=== PATIENT | female | born 1985 | race Caucasian/White ===

== ENCOUNTER 2019-05-27 13:10 | Emergency (ER) | payer BC, SELFPAY ==
[2019-05-27 13:32] VITALS: BP 130/83; PULSE 80; RESP 16; TEMP 36.7; O2SAT 99; BMI 24.0
--- NOTE | 2019-05-27 13:40 | ED_ITS ---
Entered by Simeon Cartagena LPN, acting as scribe for Juan Alberto Robles MD HPI - Abdominal Pain General: Chief Complaint: Abdominal Pain Stated Complaint: vaginal bleeding Time Seen by Provider: 05/27/19 13:40 History of Present Illness: Associated Symptoms: Denies change in bowel habits, chills, constipation, dysuria, fever(s), nausea and vomiting Related Data: Date of Last Menstrual Period: 03/13/19 Review of Systems Const: Denies: fever, chills, night sweats or diaphoresis Eyes: Denies: change in vision or blurry vision ENMT: Denies: throat pain Card: Denies: chest pain Resp: Denies: shortness of breath or productive cough GI: Reports: abdominal pain; Denies: nausea, vomiting, constipation or change in bowel habits : Reports: vaginal bleeding; Denies: painful urination Musc: Denies: extremity pain or joint pain Skin/Breast: Denies: rash Neuro: Denies: headache, difficulty walking or confusion Psych: Denies: suicidal ideation or homicidal ideation PENDING SALE TO [facility] ED Female Reproductive History: Date of last menstrual period: 03/13/19 Physical Exam Const: COMMON NORMALS: no apparent distress, oriented x3, no limitations and alert EXAM LIMITATIONS: no altered mental status GENERAL APPEARANCE: cooperative, comfortable and well developed; not in distress, not anxious and not lethargic ORIENTATION/CONSCIOUSNESS: Yes awake, Yes oriented to person, Yes oriented to place and Yes oriented to time; not lethargic HENMT: COMMON NORMALS: normocephalic, head/scalp atraumatic and external nose normal HEAD & SCALP: normocephalic and atraumatic FACE & SINUS: normal facial exam NOSE: external nose normal Eye: COMMON NORMALS: PERRL, EOMs intact bilaterally, conjunctivae normal and no scleral icterus CONJUNCTIVA: Yes conjunctivae normal PUPIL: Yes PERRL Neck/C-Spine: COMMON NORMALS: full ROM GENERAL: Yes normal visual inspection Chest: COMMONS NORMALS: inspection of chest normal and palpation of chest normal Resp: COMMON NORMALS: normal respiratory effort, no retractions, no use of accessory muscles and clear to auscultation bilaterally EFFORT & INSPECTION: Yes able to speak in complete sentences AUSCULTATION: clear to auscultation bilaterally Cardio: COMMON NORMALS: regular rate, regular rhythm, no murmurs and peripheral pulses 2+ throughout RATE: regular rate RHYTHM: regular rhythm PERIPHERAL PULSES: pulses 2+ throughout, radial pulses present and posterior tibial pulses present GI: COMMON NORMALS: normal to inspection, nondistended, normoactive bowel sounds, soft to palpation, non-tender, no hepatosplenomegaly, no masses and no bruits PALPATION: Yes soft and Yes no hepatosplenomegaly Extremity: COMMON NORMALS: normal to inspection, full ROM, normal capillary refill, no joint enlargement and no clubbing, cyanosis or edema Neuro: COMMON NORMALS: oriented x3 SENSORIUM/ORIENTATION: Yes alert, Yes oriented to person, Yes oriented to place, Yes oriented to time and No lethargic Psych: COMMON NORMALS: mental status grossly normal, thought process normal, cooperative, affect normal, speech normal and activity/motor behavior normal SPEECH: Yes normal speech THOUGHT PROCESS: normal thought process Skin: COMMON NORMALS: no rashes or lesions noted and skin turgor normal GENERAL SKIN EXAM: no rashes or lesions noted, elasticity normal and turgor normal Procedures Intubation Mg Given: 20 Mg Given: 200 Course Vital Signs: Vital signs: Vital Signs Temperature 98.1 F 05/27/19 13:32 Pulse Rate 80 05/27/19 13:32 Respiratory Rate 16 05/27/19 13:32 Blood Pressure 130/83 05/27/19 13:32 Pulse Oximetry 99 05/27/19 13:32 Coding Level of Care Code ED Crawler Dragline Operator for Ramirez Huizar
--- NOTE | 2019-05-27 13:55 | USR_ITS ---
PROCEDURE INFORMATION: Exam: US Pelvis Complete, Transabdominal Exam date and time: 05/27/2019 2:21 PM Age: 33 years old Clinical indication: Menstruation abnormalities; Irregular menstruation; Prior surgery; Surgery date: 1-6 months; Surgery type: Bilateral oophorectomy; Patient HX: H/o endometriosis; Additional info: R lower pelvic pain TECHNIQUE: Imaging protocol: Real-time transabdominal pelvic ultrasound with image documentation. Complete exam. COMPARISON: US pelvic with transvaginal 12/06/2018 2:10 PM FINDINGS: Uterus/cervix: There is a 5 mm incidental nabothian cyst. Endometrial stripe measures 5 mm and is mildly heterogeneous. Uterus measures 8.7 x 3.5 x 6.6 cm. Right adnexa: Right ovary has been removed surgically. Left adnexa: Left ovary has been surgically removed. Free fluid: None. Bladder: Normal. US/US pelvic with transvaginal IMPRESSION: Endometrial stripe is normal thickness however is mildly heterogeneous. This is a nonspecific finding.
--- NOTE | 2019-05-27 14:04 | W.ED.ABDPA2 ---
HPI - Abdominal Pain General: Chief Complaint: Abdominal Pain Stated Complaint: vaginal bleeding Time Seen by Provider: 05/27/19 13:40 Source: patient Mode of arrival: ambulatory Limitations: no limitations History of Present Illness: HPI narrative: Patient is a 33-year-old female who presents to ED today with complaints of right lower pelvic pain that began today; she notes vaginal bleeding x2 days; patient reports a bilateral oophorectomy and salpingectomy by Dr. Ryan marshall in February for endometriosis; she reports that the pain in her right pelvis feels similar to when she was having pain associated with the endometriosis; she denies vaginal discharge or odor; she is monogamous with her ; denies dysuria, frequency, urgency; denies nausea, vomiting, changes in bowel movements MD elicited complaint: abdominal pain Onset (ago): hour(s) Pain Consistency: constant Location: RLQ Quality: cramping Radiation: none Associated Symptoms: Reports GI cramping; Denies bloating, change in bowel habits, chills, constipation, diarrhea, dysuria, excessive flatus, fever(s), nausea and vomiting Related Data: Date of Last Menstrual Period: 03/13/19 Review of Systems Const: Denies: fever or chills GI: Reports: abdominal pain and cramping; Denies: nausea, vomiting, diarrhea, constipation, bloating, excessive passing of gas or change in bowel habits : Reports: vaginal bleeding; Denies: flank pain, difficulty urinating, painful urination, urinary frequency, urinary urgency, urinary hesitancy, genital lesion, genital itching, vaginal odor or vaginal discharge [facility] ED Female Reproductive History: Date of last menstrual period: 03/13/19 Physical Exam Const: COMMON NORMALS: no apparent distress, average body habitus, oriented x3, alert and well nourished GENERAL APPEARANCE: cooperative Resp: COMMON NORMALS: normal respiratory effort and clear to auscultation bilaterally AUSCULTATION: clear to auscultation bilaterally Cardio: COMMON NORMALS: regular rate and regular rhythm RATE: regular rate RHYTHM: regular rhythm GI: COMMON NORMALS: soft to palpation, no hepatosplenomegaly and no masses AUSCULTATION: Yes normoactive bowel sounds PALPATION: Yes soft, Yes tender (R pelvic region; neg rebound, psoas, heel tap; no tenderness to mcburneys) and Yes no hepatosplenomegaly : COMMON NORMALS: Yes no CVA tenderness BLADDER/KIDNEY EXAM: Yes no CVA tenderness Back/Pelvis: COMMON NORMALS: no CVA tenderness Neuro: COMMON NORMALS: oriented x3 SENSORIUM/ORIENTATION: Yes alert Skin: COMMON NORMALS: no rashes or lesions noted GENERAL SKIN EXAM: no rashes or lesions noted Course Vital Signs: Vital signs: Vital Signs Temperature 98.1 F 05/27/19 13:32 Pulse Rate 78 05/27/19 15:05 Respiratory Rate 16 05/27/19 15:05 Blood Pressure 144/103 05/27/19 15:05 Pulse Oximetry 98 05/27/19 15:05 MDM - Abdominal Pain Lab Data: Labs: Lab Results 05/27/19 05/27/19 05/27/19 Range/Units 14:00 14:13 14:13 WBC 10.5 H (4.0-10.0) 10^3/ uL RBC 4.63 (4.1-5.3) 10^6/u L Hgb 14.6 (11.5-15.3) g/dL Hct 42.4 (37.0-47.0) % MCV 91.6 (81-99) fL MCH 31.5 (28.0-34.0) pg MCHC 34.4 (30.0-36.0) g/dL RDW 12.6 (12.1-15.1) % Plt Count 322 (130-400) 10^3/c mm MPV 9.1 (7.4-10.4) fL Neut % (Auto) 62.4 % Lymph % (Auto) 28.7 % Brantley % (Auto) 5.1 % Eos % (Auto) 3.0 % Baso % (Auto) 0.6 % Neut # (Auto) 6.6 (1.8-7.7) 10^3/u L Lymph # (Auto) 3.0 (0.8-4.8) 10^3/u L Brantley # (Auto) 0.5 (0.2-0.9) 10^3/u L Eos # (Auto) 0.3 (0.0-0.8) 10^3/u L Baso # (Auto) 0.1 (0.0-0.1) 10^3/u L Nucleated RBC % (a uto) 0 % Nucleated RBCs # 0.0 /100WBC Sodium 148 H (136-145) mmol/L Potassium 3.9 (3.5-5.1) mmol/L Chloride 106 (98-107) mmol/L Carbon Dioxide 26 (22-29) mmol/L Anion Gap 19.9 H (5-19) BUN 17 (6-20) mg/dL Creatinine 0.5 (0.5-0.9) mg/dL GFR Calculation 140.4 H (90-130) mL/min Glucose 93 (74-109) mg/dL Calcium 10.2 H (8.6-10.0) mg/Dl Total Bilirubin 0.2 (0.15-1.2) mg/dL AST 15 (0-32) U/L ALT 11 (0-33) U/L Alkaline Phosphata se 53 (35-105) IU/L Total Protein 7.6 (6.6-8.7) g/dL Albumin 4.7 (3.5-5.2) g/dL Globulin 2.9 (1.3-4.6) g/dL Urine Color Yellow (Yellow) Urine Appearance Sl hazy (CLEAR) Urine pH 5 (5-7) Ur Specific Gravit y 1.015 (1.005-1.030) Urine Protein Neg (Negative) Urine Glucose (UA) Norm (Normal) Urine Ketones Negative (Negative) Urine Occult Blood 3+ H (Negative) Urine Nitrate Negative (Negative) Urine Bilirubin Neg (NEGATIVE) Urine Urobilinogen Norm (Negative) mg/dL Ur Leukocyte Lili ase Negative (Negative) Urine RBC 10-15 H (0-2) /hpf Urine WBC None (0-5) /hpf Ur Squamous Epith Cells 0-4 H (0-5) Urine Bacteria None (NONE) Imaging Data ^: US pelvis: Radiologist's impression: [address] [address] Ultrasound Report Signed Patient: Sophia Bhardwaj Unit #: [id number] : 1985 Age/Sex: 33 / F ADM Date: 05/27/19 Loc: ER Room/Bed: Attending Dr: Ordering Provider/Ordering MD: Cherelle Gamble Date of Service: 05/27/19 Procedure(s): US pelvic with transvaginal Accession Number(s): [id number] Report Number: [id number] PROCEDURE INFORMATION: Exam: US Pelvis Complete, Transabdominal Exam date and time: 05/27/2019 2:21 PM Age: 33 years old Clinical indication: Menstruation abnormalities; Irregular menstruation; Prior surgery; Surgery date: 1-6 months; Surgery type: Bilateral oophorectomy; Patient HX: H/o endometriosis; Additional info: R lower pelvic pain TECHNIQUE: Imaging protocol: Real-time transabdominal pelvic ultrasound with image documentation. Complete exam. COMPARISON: US pelvic with transvaginal 12/06/2018 2:10 PM FINDINGS: Uterus/cervix: There is a 5 mm incidental nabothian cyst. Endometrial stripe measures 5 mm and is mildly heterogeneous. Uterus measures 8.7 x 3.5 x 6.6 cm. Right adnexa: Right ovary has been removed surgically. Left adnexa: Left ovary has been surgically removed. Free fluid: None. Bladder: Normal. US/US pelvic with transvaginal IMPRESSION: Endometrial stripe is normal thickness however is mildly heterogeneous. This is a nonspecific finding. Dictated By: Marta Loredo MD Signed By: Marta Loredo MD Signed Date/Time: 05/27/191527 DD/ 26 Discharge Plan Discharge Patient Disposition: Home, Self-Care Clinical Impression: Pelvic pain in female Condition: Stable Prescriptions: No Action medroxyprogesterone 5 mg tablet 5 mg PO DAILY RF: 0 estradiol 1 mg tablet 1 mg PO DAILY RF: 0 estradiol 0.5 mg tablet 0.5 mg PO DAILY RF: 0 Thrive Patch 1 patch topical DAILY RF: 0 Thrive Pills 2 tab PO DAILY RF: 0 Discharge Orders: Discharge Order (Routine); Ordered 05/27/19 Ordered By: Cherelle Gamble Referrals: Nae Coyne DO [Family Provider] - Discharge Diet: Usual diet Discharge Activity: Resume usual activity Activity Restrictions/Additional Instructions: Contact Dr. Davis's office to schedule follow up visit. Return to ED for worsening pain, severe bleeding, fevers/chills, or any other concerning symptoms. Coding Level of Care Code ED Embalmer Apprentice for Chg Fwd Exam Problem Focused
[2019-05-27 14:18] LABS: Basophils # 0.1 10^3/uL (0.0-0.1); Basophils % 0.6 %; Eosinophils # 0.3 10^3/uL (0.0-0.8); Hematocrit 42.4 % (37.0-47.0); Hemoglobin 14.6 g/dL (11.5-15.3); Lymphocytes % 28.7 %; Mean Corpuscular HGB Conc 34.4 g/dL (30.0-36.0); Mean Corpuscular Hemoglobin 31.5 pg (28.0-34.0); Mean Corpuscular Volume 91.6 fL (81-99); Mean Platelet Volume 9.1 fL (7.4-10.4); Monocytes # 0.5 10^3/uL (0.2-0.9); Monocytes % 5.1 %; Neutrophils # 6.6 10^3/uL (1.8-7.7); Neutrophils % 62.4 %; Nucleated Red Blood Cells % 0 %; Platelet Count 322 10^3/cmm (130-400); Red Blood Count 4.63 10^6/uL (4.1-5.3); Red Cell Distribution Width 12.6 % (12.1-15.1); White Blood Count 10.5 10^3/uL (4.0-10.0)
[2019-05-27 14:24] LABS: Glucose Urine UA Norm (Normal); Ketones Urine Negative (Negative); Protein Urine Neg (Negative); Specific Gravity, Urine 1.015 (1.005-1.030); Urine Appearance SL Hazy (CLEAR); Urine Color Yellow (Yellow); pH Urine 5 (5-7)
[2019-05-27 14:25] LABS: Add Urine Microscopic? YES; Bilirubin Urine Neg (NEGATIVE); Blood Urine 3+ (Negative); Leukocyte Esterase Urine Negative (Negative); Nitrate Urine Negative (Negative); Urobilinogen Urine Norm (Negative)
[2019-05-27 14:29] LABS: Add Urine Culture? Yes; Squamous Epithelial Cell Urine 0-4 (0-5)
[2019-05-27 14:36] LABS: Alanine Aminotransferase 11 U/L (0-33); Albumin Level 4.7 g/dL (3.5-5.2); Alkaline Phosphatase 53 IU/L (35-105); Anion Gap 19.9 (5-19); Aspartate Amino Transferase 15 U/L (0-32); Blood Urea Nitrogen 17 mg/dL (6-20); Calcium 10.2 mg/Dl (8.6-10.0); Carbon Dioxide 26 mmol/L (22-29); Chloride 106 mmol/L (98-107); Globulin 2.9 g/dL (1.3-4.6); Glomerular Filtration Rate 140.4 mL/min (90-130); Glucose 93 mg/dL (74-109); Potassium 3.9 mmol/L (3.5-5.1); Sodium 148 mmol/L (136-145); Total Bilirubin 0.2 mg/dL (0.15-1.2); Total Protein 7.6 g/dL (6.6-8.7)
[2019-05-27] MEDS: morphine 4 mg/mL SDV 1 mL IM (15:02)
[2019-05-27] MEDS: ondansetron 2 mg/ML SDV 2 mL 4 MG IM (15:02)
[2019-05-27 15:05] VITALS: BP 144/103; PULSE 78; RESP 16; O2SAT 98
[2019-05-27 16:10] VITALS: BP 126/84; PULSE 70; RESP 18; O2SAT 97
--- NOTE | 2019-05-29 13:30 | DCPLANNER ---
global regulatory affairs manager had message to schedule a follow up appointment for patient with [facility]. global regulatory affairs manager called the clinic, spoke with Subha, gave clinic patients information. global regulatory affairs manager was told that patients information would be printed and reviewed. Clinic will call leather case finisher with appointment information.
--- NOTE | 2019-05-30 12:43 | DCPLANNER ---
A follow up appointment is scheduled for Tuesday, June 04, [address] at 2:[address] Davis. Clinic will call patient with appointment information.
--- NOTE | 2019-06-06 15:11 | DCPLANNER ---
Patient did attend appointment scheduled for 06.04.19 with [facility].
== END 2019-05-27 16:11 | disposition home or self-care (01) ==
PROVIDERS: Emergency Provider Physician Assistant; Family Provider Family Medicine
DX: R10.2 Pelvic and perineal pain (principal)
CPT/HCPCS: 36415; 76830; 76856; 80053; 81003; 85025; 96372; 99282; J2270; J2405

== ENCOUNTER → 2019-07-23 14:36 | Outpatient (BNVA) | payer BC, SELFPAY | PROVIDERS: Family Provider Family Medicine; PCP Family Medicine; Visit Provider Family Medicine | DX: R68.89 Other general symptoms and signs (principal) | CPT/HCPCS: 87804 ==

== ENCOUNTER → 2020-06-09 15:50 | Outpatient (BNVA) | payer BC, SELFPAY | PROVIDERS: Family Provider Family Medicine; PCP Family Medicine; Visit Provider Obstetrics & Gynecology | DX: N89.8 Other specified noninflammatory disorders of vagina (principal) | CPT/HCPCS: 87210 ==

== ENCOUNTER 2020-06-27 12:28 | Emergency (ER) | payer BC, SELFPAY ==
[2020-06-27 12:40] VITALS: BP 151/100; PULSE 77; RESP 18; TEMP 36.6; O2SAT 100; BMI 24.9
--- NOTE | 2020-06-27 13:06 | CT_ITS ---
WS: [id number] CT HEAD TECHNIQUE: Noncontrast CT of the head obtained from the skullbase to the vertex. CLINICAL INFORMATION: left sided migraine. bilateral hand cramp/weakness/tingling COMPARISON: None. DLP: 741.[address] scans at [facility] use at least one of these dose optimization techniques: automat ed exposure control; mA and/or kV adjustment per patient size (includes targeted exams where dose is matched to clinical indication); or iterative reconstruction. FINDINGS: No evidence of intracranial hemorrhage or mass effect. Ventricular system and basal cisterns are do nt. No extra-axial fluid collections. No evidence of mass or mass effect. Normal paiz-white differen tiation. Paranasal sinuses and mastoid air cells are well aerated. .Normal visualized soft tissues. CT/CT head wo con* [id number] IMPRESSION: 1. No evidence of intracranial hemorrhage or mass effect. 2. Normal paiz-white differentiation. 3. No acute intracranial findings.
--- NOTE | 2020-06-27 13:06 | XR_ITS ---
WS: [id number] Portable AP upright chest, 06/27/2020 Clinical Data: reduced breath sounds Comparison: Portable chest, 08/16/2018. Findings: No nodules, masses or effusions are seen. The heart is normal. The pulmonary vascularity is not increased. No pneumonia or pneumothorax is seen. XR/XR chest 1V portable [id number] Impression: Negative chest.
--- NOTE | 2020-06-27 13:09 | ECG_ITS ---
[facility] Test Date: 2020-06-27 Pat Name: Sophia Thomas Department: Room: Gender: Female Sweeper Operator Highways: : 1985 Requested By: Javi Huffman Order Number: [id number] Markos MD: Ashley Bradley M.D. Measurements Intervals [place] Rate: 68 P: 45 MI: 153 QRS: 96 QRSD: 109 T: 78 QT: 403 QTc: 431 Interpretive Statements SINUS RHYTHM BORDERLINE RIGHT AXIS DEVIATION [QRS AXIS > 90] No previous ECG available for comparison Electronically Signed On 06-28-2020 19:17:39 VIDEO LIBRARY ASSISTANT by Ashley Bradley M.D. [id number] f
--- NOTE | 2020-06-27 13:09 | CT_ITS ---
WS: [id number] CT CERVICAL TRAUMA TECHNIQUE: Noncontrast CT of the cervical spine with coronal and sagittal reformatted images. CLINICAL INFORMATION: tingling/weakness bilateral hands. left side migraine COMPARISON: None. DLP: 427.[address] scans at [facility] use at least one of these dose optimization techniques: automat ed exposure control; mA and/or kV adjustment per patient size (includes targeted exams where dose is matched to clinical indication); or iterative reconstruction. FINDINGS: Straightening of the normal cervical lordosis. Normal craniocervical junction. Normal C1-C2 articulat ion. Dens is normal in appearance. Normal occipital condyles. No high-grade spinal canal narrowing. I ncidental congenital incomplete C1 ring. No evidence of acute fracture or dislocation. Normal prevertebral soft tissues. Mastoids air cells are well aerated. CT/CT cervical spin wo con* [id number] IMPRESSION: No evidence of acute fracture or dislocation.
--- NOTE | 2020-06-27 13:11 | W.ED.HA ---
HPI - Headache General: Chief Complaint: Headache Stated Complaint: NEURO SYMPTOMS Time Seen by Provider: 06/27/20 13:00 History of Present Illness: HPI Narrative: The patient is a 35-year-old female with history of migraines. She reported she left the clients house earlier and started to have a severe left-sided migraine but this 1 is different because she started to have numbness in her hands and face, dizziness, and she has been unable to open her hands they are in a slightly flexed position. She cannot open them but they are very weak in that direction. When she relaxes her hands slightly flexed. She started a new estrogen medication approximately 1 month ago. MD elicited complaint: migraine Onset description: suddenly Location: left Severity: severe Quality & Timing: throbbing Exacerbating factors: none Associated symptoms: Reports nausea and paresthesias; Deny chest pain, confusion, cough, neck stiffness or rash Review of Systems General: Reports: 10 or more systems reviewed and unremarkable except in HPI and below Const: Denies: fatigue Eyes: Denies: change in vision, blurry vision or eye redness ENMT: Denies: throat pain, swelling of lips/tongue, ear or mastoid pain or nasal congestion Card: Denies: chest pain, palpitations, irregular heart rhythm, edema, dyspnea on exertion or orthopnea Resp: Denies: dyspnea, productive cough or non-productive cough GI: Reports: nausea : Denies: flank pain, difficulty voiding, urinary frequency or urinary urgency Musc: Denies: neck pain, back pain, extremity pain, joint pain, joint redness, limited range of motion or muscle weakness Skin/Breast: Denies: rash, pruritus, erythema, skin pain or skin tenderness Neuro: Denies: confusion Psych: Denies: anxiety or depression Endo: Denies: polyuria All/Imm: Denies: urticaria, throat swelling or tongue swelling PFSH ED PFSH: Medical History (Updated 06/27/20 @ 16:00 by Javi Huffman MD) Ovarian endometriosis 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 Found to have bilateral endometriomas at time of laparoscopy on 03/13/2019 resulting in BSO being performed. Surgical menopause, symptomatic 03/13/2019: Laparoscopic BSO due to endometriomas Surgical History History of cholecystectomy (09/13/09) Laparoscopic. Performed by Dr. Briones at [facility] in [place], [place]. History of tubal ligation (05/13/10) Performed at time of section. Performed by Dr. Perez at performed at [facility] in [place], [place]. Hx of section (07/24/08) Bleeding placenta previa. J incision of the uterus. Performed by Dr. Steve Davis at [facility] in [place], [place] Previous section (05/13/10) Repeat section with BTL. Performed by Dr. Perez at [facility] in [place], [place]. S/P bilateral salpingo-oophorectomy (03/13/19) Laparoscopic BSO with lysis of omental and ovarian adhesions. Diagnosis: Bilateral endometriomas. Performed by Dr. Steve Davis at [facility] in [place], [place]. Status post surgery (01/29/14) Excision of incisional endometriosis--She had an approximately 4 cm mass involving the skin, subcutaneous tissue and a small area of the fascia at the right corner of her Pfannenstiel incision.? Performed by Dr. Steve Davis at [facility] in [place], [place]. Family History Mother Diabetes Hypertension Hyperlipidemia Grandmother Hypertension Maternal Breast cancer Maternal Mother Heart disease Unknown No problems noted. 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) Additional social history: Well balanced diet Female Reproductive History: Date of last menstrual period: 03/13/19 Physical Exam Const: COMMON NORMALS: no acute distress, average body habitus, patient oriented x3, no limitations, healthy appearing, alert and well nourished GENERAL APPEARANCE: cooperative, comfortable, well kempt and well developed ORIENTATION/CONSCIOUSNESS: Yes awake, Yes oriented to person, Yes oriented to place and Yes oriented to time HENMT: COMMON NORMALS: normocephalic, external ears normal and Normal external nose present HEAD & SCALP: normal to inspection and normocephalic NOSE: Normal external nose present EXTERNAL EAR: Yes external ears normal MOUTH: Normal oral and palatal mucosa present THROAT: posterior oropharynx normal Eye: COMMON NORMALS: Equal, round and reactive pupils present and EOMs intact bilaterally GENERAL EYE: appearance normal, both eyes and all related structures PUPIL: Yes Equal, round and reactive pupils present Neck/C-Spine: COMMON NORMALS: full ROM, no lymphadenopathy, no meningeal signs and no JVD GENERAL: Yes normal visual inspection Lymph: LYMPHATIC: no lymphadenopathy noted Chest: COMMONS NORMALS: normal inspection of the chest and normal palpation of entire chest wall Resp: COMMON NORMALS: normal respiratory effort, No retractions, No use of accessory muscles, clear to auscultation bilaterally and percussion normal EFFORT & INSPECTION: Yes able to speak in complete sentences AUSCULTATION: clear to auscultation bilaterally PERCUSSION: percussion normal Cardio: COMMON NORMALS: no JVD, regular rate, regular rhythm, S1 normal heart sound present, S2 normal heart sound present and Peripheral pulses 2+ throughout RATE: regular rate RHYTHM: regular rhythm HEART SOUNDS: S1 normal heart sound present and S2 normal heart sound present PERIPHERAL PULSES: Peripheral pulses 2+ throughout GI: COMMON NORMALS: Normal to inspection, nondistended, normoactive bowel sounds present, Soft to palpation, non-tender and no masses INSPECTION: Yes normal to inspection PALPATION: Yes Soft to palpation : COMMON NORMALS: Yes no CVA tenderness BLADDER/KIDNEY EXAM: Yes no CVA tenderness Back/Pelvis: COMMON NORMALS: no CVA tenderness, thoracic and lumbar spine normal to inspection, no thoracic nor lumbar tenderness and thoraco-lumbar ROM normal Extremity: COMMON NORMALS: normal to inspection, full ROM, capillary refill normal, no joint enlargement and no pedal edema GENERAL: Yes normal exam except as noted Neuro: COMMON NORMALS: patient oriented x3, CN's II-XII intact bilaterally, moves all extremities, no focal motor deficits, no sensory deficits noted and gait normal SENSORIUM/ORIENTATION: Yes alert, Yes oriented to person, Yes oriented to place and Yes oriented to time MENINGEAL SIGNS: Yes no meningeal signs OTHER: The patient has paresthesias to hands bilaterally. They are in a slightly flexed positioning. She is able to willfully extend them but whenever she relaxes they again go back to the slightly flexed position. She has good strength and power 5 out of 5 in all extremities. Full range of motion. No neck stiffness or pain at all. Psych: COMMON NORMALS: mental status grossly normal, Normal thought process present, cooperative, normal affect and speech normal APPEARANCE: Yes well kempt ATTITUDE: Yes calm SPEECH: Yes normal speech THOUGHT PROCESS: Normal thought process present Skin: COMMON NORMALS: no rashes or lesions noted GENERAL SKIN EXAM: no rashes or lesions noted Course Vital Signs: Vital signs: Vital Signs Temperature 97.8 F 06/27/20 12:40 Pulse Rate 67 06/27/20 15:30 Respiratory Rate 23 H 06/27/20 15:30 Blood Pressure 119/82 06/27/20 15:30 Pulse Oximetry 100 06/27/20 15:30 MDM - Headache MDM Narrative: Medical decision making narrative: The patient came in complaining of left-sided migraine with bizarre contractions to her hands and paresthesias. She had full power. She was given medications which improved her migraine and resolved her hand symptoms completely. Discussed with [facility] neurology Dr. Ann who recommended checking a mag level and discharging with a Medrol Dosepak. The patient is stable and her magnesium is normal so I will discharge her. Placed a case management referral to help her get a neurology follow-up. Primary in a few days to monitor improvement of symptoms Lab Data: Labs: Lab Results 06/27/20 06/27/20 06/27/20 Range/Units 13:42 13:42 13:42 WBC 10.4 H (4.0-10.0) 10^3/ uL RBC 4.63 (4.1-5.3) 10^6/u L Hgb 15.1 (11.5-15.3) g/dL Hct 41.9 (37.0-47.0) % MCV 90.5 (81-99) fL MCH 32.6 (28.0-34.0) pg MCHC 36.0 (30.0-36.0) g/dL RDW 11.9 L (12.1-15.1) % Plt Count 288 (130-400) 10^3/c mm MPV 9.2 (7.4-10.4) fL Neut % (Auto) 67.7 % Lymph % (Auto) 25.0 % Benson % (Auto) 5.0 % Eos % (Auto) 1.3 % Baso % (Auto) 0.5 % Neut # (Auto) 7.03 (1.8-7.7) 10^3/u L Lymph # (Auto) 2.6 (0.8-4.8) 10^3/u L Benson # (Auto) 0.5 (0.2-0.9) 10^3/u L Eos # (Auto) 0.1 (0.0-0.8) 10^3/u L Baso # (Auto) 0.1 (0.0-0.1) 10^3/u L Nucleated RBC % (a uto) 0 % Nucleated RBCs # 0.0 /100WBC PT (12.1-14.9) SECO NDS INR (0.8-1.2) APTT (23.9-36.7) SECO NDS Sodium 136 (136-145) mmol/L Potassium 3.5 (3.5-5.1) mmol/L Chloride 101 (98-107) mmol/L Carbon Dioxide 19 L (22-29) mmol/L Anion Gap 19.5 H (5-19) BUN 10 (6-20) mg/dL Creatinine 0.5 (0.5-0.9) mg/dL GFR Calculation 138.8 H (90-130) mL/min Glucose 96 (65-115) mg/dL Calculated Osmolal ity 281 L (285-295) mOsm/k g Lactate 1.0 (0.5-2.2) mmol/L Calcium 8.8 (8.5-10.5) mg/dL Magnesium (1.7-2.3) mg/dL Total Bilirubin 0.3 (0.15-1.2) mg/dL AST 17 (0-32) U/L ALT 14 (0-33) U/L Alkaline Phosphata se 46 (35-105) IU/L Total Protein 6.6 (6.6-8.7) g/dL Albumin 4.4 (3.5-5.2) g/dL Globulin 2.2 (1.3-4.6) g/dL HCG, Qual (Negative) Urine Color (Yellow) Urine Appearance (CLEAR) Urine pH (5-7) Ur Specific Gravit y (1.005-1.030) Urine Protein (Negative) Urine Glucose (UA) (Normal) Urine Ketones (Negative) Urine Blood (Negative) Urine Nitrate (Negative) Urine Bilirubin (Negative) Urine Urobilinogen (Negative) mg/dL Ur Leukocyte Lili ase (Negative) Urine RBC (0-2) /hpf Urine WBC (0-5) /hpf Ur Squamous Epith Cells (0-5) /hpf Ur Transition Epit h Cell /hpf Amorphous Sediment Urine Bacteria (NONE) /hpf Urine Opiates Scre en (Negative) ng/mL Ur Barbiturates Sc reen (Negative) ng/mL Ur Phencyclidine S crn (Negative) ng/mL Ur Amphetamines Sc reen (Negative) ng/mL U Benzodiazepines Scrn (Negative) ng/mL Urine Cocaine Scre en (Negative) ng/mL U Marijuana (THC) Screen (Negative) ng/mL 06/27/20 06/27/20 06/27/20 Range/Units 13:42 13:42 13:42 WBC (4.0-10.0) 10^3/ uL RBC (4.1-5.3) 10^6/u L Hgb (11.5-15.3) g/dL Hct (37.0-47.0) % MCV (81-99) fL MCH (28.0-34.0) pg MCHC (30.0-36.0) g/dL RDW (12.1-15.1) % Plt Count (130-400) 10^3/c mm MPV (7.4-10.4) fL Neut % (Auto) % Lymph % (Auto) % Benson % (Auto) % Eos % (Auto) % Baso % (Auto) % Neut # (Auto) (1.8-7.7) 10^3/u L Lymph # (Auto) (0.8-4.8) 10^3/u L Benson # (Auto) (0.2-0.9) 10^3/u L Eos # (Auto) (0.0-0.8) 10^3/u L Baso # (Auto) (0.0-0.1) 10^3/u L Nucleated RBC % (a uto) % Nucleated RBCs # /100WBC PT 13.10 (12.1-14.9) SECO NDS INR 0.96 (0.8-1.2) APTT 27.0 (23.9-36.7) SECO NDS Sodium (136-145) mmol/L Potassium (3.5-5.1) mmol/L Chloride (98-107) mmol/L Carbon Dioxide (22-29) mmol/L Anion Gap (5-19) BUN (6-20) mg/dL Creatinine (0.5-0.9) mg/dL GFR Calculation (90-130) mL/min Glucose (65-115) mg/dL Calculated Osmolal ity (285-295) mOsm/k g Lactate (0.5-2.2) mmol/L Calcium (8.5-10.5) mg/dL Magnesium 1.8 (1.7-2.3) mg/dL Total Bilirubin (0.15-1.2) mg/dL AST (0-32) U/L ALT (0-33) U/L Alkaline Phosphata se (35-105) IU/L Total Protein (6.6-8.7) g/dL Albumin (3.5-5.2) g/dL Globulin (1.3-4.6) g/dL HCG, Qual Negative (Negative) Urine Color (Yellow) Urine Appearance (CLEAR) Urine pH (5-7) Ur Specific Gravit y (1.005-1.030) Urine Protein (Negative) Urine Glucose (UA) (Normal) Urine Ketones (Negative) Urine Blood (Negative) Urine Nitrate (Negative) Urine Bilirubin (Negative) Urine Urobilinogen (Negative) mg/dL Ur Leukocyte Lili ase (Negative) Urine RBC (0-2) /hpf Urine WBC (0-5) /hpf Ur Squamous Epith Cells (0-5) /hpf Ur Transition Epit h Cell /hpf Amorphous Sediment Urine Bacteria (NONE) /hpf Urine Opiates Scre en (Negative) ng/mL Ur Barbiturates Sc reen (Negative) ng/mL Ur Phencyclidine S crn (Negative) ng/mL Ur Amphetamines Sc reen (Negative) ng/mL U Benzodiazepines Scrn (Negative) ng/mL Urine Cocaine Scre en (Negative) ng/mL U Marijuana (THC) Screen (Negative) ng/mL 02/12/21 02/12/21 Range/Units 14:35 14:35 WBC (4.0-10.0) 10^3/ uL RBC (4.1-5.3) 10^6/u L Hgb (11.5-15.3) g/dL Hct (37.0-47.0) % MCV (81-99) fL MCH (28.0-34.0) pg MCHC (30.0-36.0) g/dL RDW (12.1-15.1) % Plt Count (130-400) 10^3/c mm MPV (7.4-10.4) fL Neut % (Auto) % Lymph % (Auto) % Benson % (Auto) % Eos % (Auto) % Baso % (Auto) % Neut # (Auto) (1.8-7.7) 10^3/u L Lymph # (Auto) (0.8-4.8) 10^3/u L Benson # (Auto) (0.2-0.9) 10^3/u L Eos # (Auto) (0.0-0.8) 10^3/u L Baso # (Auto) (0.0-0.1) 10^3/u L Nucleated RBC % (a uto) % Nucleated RBCs # /100WBC PT (12.1-14.9) SECO NDS INR (0.8-1.2) APTT (23.9-36.7) SECO NDS Sodium (136-145) mmol/L Potassium (3.5-5.1) mmol/L Chloride (98-107) mmol/L Carbon Dioxide (22-29) mmol/L Anion Gap (5-19) BUN (6-20) mg/dL Creatinine (0.5-0.9) mg/dL GFR Calculation (90-130) mL/min Glucose (65-115) mg/dL Calculated Osmolal ity (285-295) mOsm/k g Lactate (0.5-2.2) mmol/L Calcium (8.5-10.5) mg/dL Magnesium (1.7-2.3) mg/dL Total Bilirubin (0.15-1.2) mg/dL AST (0-32) U/L ALT (0-33) U/L Alkaline Phosphata se (35-105) IU/L Total Protein (6.6-8.7) g/dL Albumin (3.5-5.2) g/dL Globulin (1.3-4.6) g/dL HCG, Qual (Negative) Urine Color Yellow (Yellow) Urine Appearance Cloudy (CLEAR) Urine pH 7 (5-7) Ur Specific Gravit y 1.005 (1.005-1.030) Urine Protein Neg (Negative) Urine Glucose (UA) Norm (Normal) Urine Ketones Negative (Negative) Urine Blood Neg (Negative) Urine Nitrate Negative (Negative) Urine Bilirubin Neg (Negative) Urine Urobilinogen Norm (Negative) mg/dL Ur Leukocyte Lili ase Negative (Negative) Urine RBC 0-4 H (0-2) /hpf Urine WBC None (0-5) /hpf Ur Squamous Epith Cells None (0-5) /hpf Ur Transition Epit h Cell None /hpf Amorphous Sediment Not Reportable Urine Bacteria Trace (NONE) /hpf Urine Opiates Scre en Negative (Negative) ng/mL Ur Barbiturates Sc reen Negative (Negative) ng/mL Ur Phencyclidine S crn Negative (Negative) ng/mL Ur Amphetamines Sc reen Negative (Negative) ng/mL U Benzodiazepines Scrn Negative (Negative) ng/mL Urine Cocaine Scre en Negative (Negative) ng/mL U Marijuana (THC) Screen Negative (Negative) ng/mL Discharge Plan Discharge Patient Disposition: Home Clinical Impression: Migraine Condition: Stable Prescriptions: New Medrol (Michael) 4 mg tablets,dose pack See Rx Instructions .ROUTE .COMPLEX Qty: 21 RF: 0 No Action ibuprofen 200 mg Tablet 200 - 400 mg PO Q6H PRN (Reason: Pain) RF: 0 Tylenol Extra Strength 500 mg Capsule 500 mg PO Q6H PRN (Reason: Pain) RF: 0 venlafaxine 75 mg capsule,extended release 24hr 75 mg PO DAILY@0700 RF: 0 estradiol 1 mg tablet 1.5 mg PO DAILY@0700 RF: 0 Prometrium 200 mg capsule 200 mg PO DAILY@0700 RF: 0 Discharge Orders: Discharge ED (Routine); Ordered 06/27/20 Ordered By: Javi Huffman Referrals: Nae Coyne DO [Primary Care Provider] - Discharge Diet: Advance as tolerated Patient Instructions: Migraine Headache (ED), Opioid Safety Activity Restrictions/Additional Instructions: You have most likely suffered complications from a migraine headache with your hands nury. This is improved which is encouraging. Please take the steroid pack as directed at home and follow-up with a neurologist. I have placed a case management referral to help you get in with a neurologist as an outpatient. Please answer your phone Tuesday as they will likely call you and help to try and get an appointment for you. Also follow-up with your primary care physician in a few days to monitor improvement of your symptoms and return to the ER with worsening symptoms Coding Level of Care Code ED Creative Resource Manager for [employer] Fwd Exam Comprehensive
--- NOTE | 2020-06-27 13:19 | CT_ITS ---
WS: [id number] CTA HEAD AND NECK TECHNIQUE: Contrast enhanced CTA of the head and neck with coronal and sagittal reformatted images an d maximum intensity projection (MIP) images. NASCET criteria utilized. CLINICAL INFORMATION: hand cramping/tingling. Left migriane. CVA? COMPARISON: None. DLP: 1580.[address] scans at [facility] use at least one of these dose optimization techniques: automat ed exposure control; mA and/or kV adjustment per patient size (includes targeted exams where dose is matched to clinical indication); or iterative reconstruction. FINDINGS: RIGHT: Right common carotid artery is patent. No significant right ICA stenosis. ICA is patent to the skull base. LEFT: Left common carotid artery is patent. No significant left ICA stenosis. Left ICA is patent to t he skull base. INTRACRANIAL CTA: Codominant and patent vertebral arteries bilaterally. Proximal basilar artery is patent. Normal vascu larity to the BOBBY and MCA territories bilaterally. Patent anterior communicating artery. No evidence of flow-limiting stenosis. Normal vascularity to the VARN[employer] territory bilaterally. CT/CT angio headne* 92945/50836 IMPRESSION: 1. No significant cervical ICA stenosis bilaterally. No evidence of ICA dissec tion. Both ICAs are patent to the skull base. 2. Codominant and patent vertebral arteries. 3. Normal intracranial CTA. No flow-limiting stenosis. Notified Javi Huffman MD at 06/27/2020 2:24 PM.
[2020-06-27] MEDS: ondansetron 2 mg/ML SDV 2 mL 4 MG IVP (13:46)
[2020-06-27] MEDS: diphenhydrAMINE 50 mg/mL SDV 1mL 25 MG IVP (13:46)
[2020-06-27] MEDS: ketorolac 30 mg/mL INJ 15 MG IVP (13:47)
[2020-06-27] MEDS: sodium chloride 0.9% 1,000 ML 999 ML IV (13:47)
[2020-06-27 13:50] LABS: Basophils # 0.1 10^3/uL (0.0-0.1); Basophils % 0.5 %; Eosinophils # 0.1 10^3/uL (0.0-0.8); Eosinophils % 1.3 %; Hematocrit 41.9 % (37.0-47.0); Hemoglobin 15.1 g/dL (11.5-15.3); Lymphocytes # 2.6 10^3/uL (0.8-4.8); Mean Corpuscular Hemoglobin 32.6 pg (28.0-34.0); Mean Corpuscular Volume 90.5 fL (81-99); Mean Platelet Volume 9.2 fL (7.4-10.4); Monocytes # 0.5 10^3/uL (0.2-0.9); Neutrophils # 7.03 10^3/uL (1.8-7.7); Neutrophils % 67.7 %; Nucleated Red Blood Cells % 0 %; Platelet Count 288 10^3/cmm (130-400); Red Blood Count 4.63 10^6/uL (4.1-5.3); Red Cell Distribution Width 11.9 % (12.1-15.1); White Blood Count 10.4 10^3/uL (4.0-10.0)
[2020-06-27] MEDS: iohexol 350 mg/mL 100 mL Btl IV (14:00)
[2020-06-27 14:24] LABS: INR 0.96 (0.8-1.2)
[2020-06-27 14:41] LABS: HCG, Serum Qual Negative (Negative)
[2020-06-27 14:46] VITALS: BP 125/89; PULSE 66; RESP 18; O2SAT 100
[2020-06-27 14:56] LABS: Add Urine Microscopic? YES; Bilirubin Urine Neg (Negative); Blood Urine Neg (Negative); Glucose Urine UA Norm (Normal); Ketones Urine Negative (Negative); Leukocyte Esterase Urine Negative (Negative); Nitrate Urine Negative (Negative); Protein Urine Neg (Negative); Specific Gravity, Urine 1.005 (1.005-1.030); Urine Appearance Cloudy (CLEAR); Urine Color Yellow (Yellow); Urobilinogen Urine Norm (Negative); pH Urine 7 (5-7)
[2020-06-27 14:58] LABS: Alanine Aminotransferase 14 U/L (0-33); Albumin Level 4.4 g/dL (3.5-5.2); Alkaline Phosphatase 46 IU/L (35-105); Aspartate Amino Transferase 17 U/L (0-32); Blood Urea Nitrogen 10 mg/dL (6-20); Calcium 8.8 mg/dL (8.5-10.5); Carbon Dioxide 19 mmol/L (22-29); Chloride 101 mmol/L (98-107); Globulin 2.2 g/dL (1.3-4.6); Glomerular Filtration Rate 138.8 mL/min (90-130); Glucose 96 mg/dL (65-115); Osmolality Calculated 281 mOsm/kg (285-295); Sodium 136 mmol/L (136-145); Total Bilirubin 0.3 mg/dL (0.15-1.2); Total Protein 6.6 g/dL (6.6-8.7)
[2020-06-27 15:00] LABS: Amphetamines Screen Urine Negative (Negative); Barbiturates Screen Urine Negative (Negative); Benzodiazepines Screen Urine Negative (Negative); Cocaine Screen Urine Negative (Negative); Opiate Screen Urine Negative (Negative); PCP Screen Urine Negative (Negative); THC Screen Urine Negative (Negative)
[2020-06-27 15:00] LABS: Anion Gap 19.5 (5-19); Potassium 3.5 mmol/L (3.5-5.1)
[2020-06-27 15:06] LABS: Add Urine Culture? No; Bacteria Urine TRACE /hpf; RBC Urine 0-4 /hpf (0-2)
[2020-06-27] MEDS: predniSONE 20 mg Tablet 40 MG PO (15:27)
[2020-06-27 15:28] VITALS: BP 119/82; PULSE 66; RESP 20; O2SAT 99
[2020-06-27 15:30] VITALS: BP 119/82; PULSE 67; RESP 23; O2SAT 100
[2020-06-27 15:55] LABS: Magnesium 1.8 mg/dL (1.7-2.3)
--- NOTE | 2020-07-02 09:17 | DCPLANNER ---
Addendum entered by Cristina Lee 07/02/20 14:07: Appointment is with Dr. Lopez. Original Note: quality assurance test program manager received message to schedule follow up appointment with Neuro. quality assurance test program manager called and spoke to Kinza, who took patient's information and schedule appointment for Tuesday07/07/20 @ 10:00am. quality assurance test program manager called patient @ [phone] and provided appointment information and phone number to the clinic.
--- NOTE | 2020-07-31 15:14 | DCPLANNER ---
Patient had a follow up appointment scheduled for 07.07.[address] Lopez - patient did attend appointment.
== END 2020-06-27 16:05 | disposition home or self-care (01) ==
PROVIDERS: Emergency Provider Family Medicine; PCP Family Medicine
DX: G43.909 Migraine, unspecified, not intractable, without status migrainosus (principal); F17.210 Nicotine dependence, cigarettes, uncomplicated
CPT/HCPCS: 70450; 70496; 70498; 71045; 72125; 80053; 80306; 81001; 83605; 83735; 84703; 85025; 85610; 85730; 93005; 96361; 96374; 96375; 99284; J1200; J1885; J2405; J7030; J7512; Q9967

== ENCOUNTER → 2020-07-07 09:52 | Outpatient (BNVA) | payer BC, SELFPAY | PROVIDERS: PCP Family Medicine; Visit Provider Specialist | DX: G43.109 Migraine with aura, not intractable, without status migrainosus (principal); R55 Syncope and collapse; R20.2 Paresthesia of skin; F17.210 Nicotine dependence, cigarettes, uncomplicated | CPT/HCPCS: 99205 ==

== ENCOUNTER → 2020-07-29 09:29 | Outpatient (BNVA) | payer BC, SELFPAY | PROVIDERS: PCP Family Medicine; Visit Provider Specialist | DX: R56.9 Unspecified convulsions (principal); F17.210 Nicotine dependence, cigarettes, uncomplicated | CPT/HCPCS: 95816 ==

== ENCOUNTER → 2020-08-07 11:29 | Outpatient (BNVA) | payer BC, SELFPAY | PROVIDERS: PCP Family Medicine; Visit Provider Specialist | DX: G43.109 Migraine with aura, not intractable, without status migrainosus (principal); R56.9 Unspecified convulsions; R55 Syncope and collapse; F17.210 Nicotine dependence, cigarettes, uncomplicated | CPT/HCPCS: 99215 ==

== ENCOUNTER → 2020-10-09 11:23 | Outpatient (BNVA) | payer BC, SELFPAY | PROVIDERS: PCP Family Medicine; Visit Provider Specialist | DX: G43.109 Migraine with aura, not intractable, without status migrainosus (principal); F17.210 Nicotine dependence, cigarettes, uncomplicated | CPT/HCPCS: 99213 ==

== ENCOUNTER 2021-01-16 09:00 | Emergency (ER) | payer BC, SELFPAY ==
[2021-01-16 09:31] VITALS: BP 127/88; PULSE 75; RESP 16; TEMP 36.7; O2SAT 98; BMI 28.5
[2021-01-16 09:48] LABS: Add Urine Microscopic? NO; Charge for UA Resulting for Rev
[2021-01-16 09:57] LABS: Bilirubin Urine Neg (Negative); Blood Urine Neg (Negative); Glucose Urine UA Norm (Normal); Ketones Urine Negative (Negative); Leukocyte Esterase Urine Negative (Negative); Nitrate Urine Negative (Negative); Protein Urine Neg (Negative); Specific Gravity, Urine 1.015 (1.005-1.030); Sulfosalicylic Acid Urine Negative (Negative); Urine Appearance Clear (CLEAR); Urine Color Straw (Yellow); Urobilinogen Urine Norm (Negative); pH Urine 8 (5-7)
--- NOTE | 2021-01-16 10:04 | ED_ITS ---
HPI - Abdominal Pain General: Chief Complaint: Abdominal Pain Stated Complaint: Right abdomen pain Time Seen by Provider: 01/16/21 09:03 History of Present Illness: HPI narrative: 35-year-old female presents to the emergency room with complaints of abdominal pain for last 4 days progressively worsening began in the right lower quadrant and has intensified. It radiates into her right flank. She has had loose stools for the last 2 days but she has not had any hematochezia or melena. She denies any dysuria or frequency. Hematuria. She previously has had a cholecystectomy abdominal hysterectomy with bilateral oophorectomy and prior C-sections. She has no history of nephrolithiasis. She not had any vomiting she has had a lot progressively worsening loss of appetite. Denies fever. No cough or shortness of breath. MD elicited complaint: abdominal pain Onset (ago): day(s) (4) Pain Consistency: constant Location: RLQ Severity: moderate Quality: cramping Radiation: R flank and back Exacerbating factors: other (Exam) Relieving factors: nothing (Exam) Associated Symptoms: Reports anorexia and GI cramping; Denies belching, bloating, change in bowel habits, change in stool character, chills, coffee ground emesis, constipation, diarrhea, dyspepsia, dysuria, excessive flatus, fever(s), heartburn, hematochezia, hematuria, hematemesis, fecal incontinence, loose stools, melena, nausea, poor appetite, syncope and vomiting Related Data: Date of Last Menstrual Period: 03/13/19 Review of Systems Const: Denies: fever(s) or chills ENMT: Denies: throat pain, ear or mastoid pain, nasal discharge or nasal congestion Card: Denies: syncope Resp: Denies: dyspnea, productive cough or non-productive cough GI: Reports: GI cramping; Denies: nausea, vomiting, hematemesis, coffee ground emesis, heartburn, diarrhea, constipation, bloating, belching, excessive flatus, fecal incontinence, change in bowel habits, change in stool character, hematochezia or melena : Denies: dysuria or hematuria Skin/Breast: Denies: rash or pruritus PFSH ED PFSH: Medical History (Updated 01/16/21 @ 13:00 by Jose Jacobson DO) Ovarian endometriosis 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 Found to have bilateral endometriomas at time of laparoscopy on 03/13/2019 resulting in BSO being performed. Surgical menopause, symptomatic 03/13/2019: Laparoscopic BSO due to endometriomas Surgical History History of cholecystectomy (09/13/09) Laparoscopic. Performed by Dr. Briones at [facility] in [place], [place]. History of tubal ligation (05/13/10) Performed at time of section. Performed by Dr. Perez at performed at [facility] in [place], [place]. Hx of section (07/24/08) Bleeding placenta previa. J incision of the uterus. Performed by Dr. Froy Davis at [facility] in [place], [place] Previous section (05/13/10) Repeat section with BTL. Performed by Dr. Perez at [facility] in [place], [place]. S/P bilateral salpingo-oophorectomy (03/13/19) Laparoscopic BSO with lysis of omental and ovarian adhesions. Diagnosis: Bilateral endometriomas. Performed by Dr. Steve Davis at [facility] in [place], [place]. Status post surgery (01/29/14) Excision of incisional endometriosis--She had an approximately 4 cm mass involving the skin, subcutaneous tissue and a small area of the fascia at the right corner of her Pfannenstiel incision.? Performed by Dr. Steve Davis at [facility] in [place], [place]. Family History Mother Diabetes Hypertension Hyperlipidemia Grandmother Hypertension Maternal Breast cancer Maternal Mother Heart disease Unknown No problems noted. 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) Additional social history: Well balanced diet Female Reproductive History: Date of last menstrual period: 03/13/19 Physical Exam Const: COMMON NORMALS: no acute distress GENERAL APPEARANCE: cooperative and comfortable ORIENTATION/CONSCIOUSNESS: Yes awake, Yes oriented to person, Yes oriented to place and Yes oriented to time HENMT: COMMON NORMALS: normocephalic, atraumatic and hearing grossly normal bilaterally HEAD & SCALP: normocephalic and atraumatic Neck/C-Spine: COMMON NORMALS: no JVD Resp: COMMON NORMALS: normal respiratory effort, No retractions, No use of accessory muscles and clear to auscultation bilaterally AUSCULTATION: clear to auscultation bilaterally Cardio: COMMON NORMALS: no JVD, regular rate, regular rhythm and No murmurs present (Cardio) RATE: regular rate RHYTHM: regular rhythm GI: COMMON NORMALS: No hepatosplenomegaly present PALPATION: Yes Tenderness to palpation present (GI) Details: RLQ, No Guarding due to palpation present (GI) and Yes No hepatosplenomegaly present Extremity: COMMON NORMALS: normal to inspection, capillary refill normal, no clubbing, cyanosis or edema, no calf tenderness and no pedal edema Neuro: SENSORIUM/ORIENTATION: Yes oriented to person, Yes oriented to place and Yes oriented to time Skin: COMMON NORMALS: no rashes or lesions noted GENERAL SKIN EXAM: no rashes or lesions noted Course Vital Signs: Vital signs: Vital Signs Temperature 97.7 F 01/16/21 13:26 Pulse Rate 98 01/16/21 13:26 Respiratory Rate 14 01/16/21 13:26 Blood Pressure 111/62 01/16/21 13:26 Pulse Oximetry 98 01/16/21 13:26 MDM - Abdominal Pain MDM Narrative: Medical decision making narrative: Reviewed labs and imaging. We will go ahead and discharge patient home clear liquid diet for the next 24 to 48 hours Zofran as needed if symptoms worsen or change return. Lab Data: Labs: Lab Results 01/16/21 01/16/21 01/16/21 Range/Units 09:34 10:22 10:22 WBC 7.2 (4.0-10.0) 10^3/ uL RBC 4.46 (4.1-5.3) 10^6/u L Hgb 14.6 (11.5-15.3) g/dL Hct 42.4 (37.0-47.0) % MCV 95.1 (81-99) fl MCH 32.7 (28.0-34.0) pg MCHC 34.4 (30.0-36.0) g/dL RDW 12.6 (12.1-15.1) % Plt Count 277 (130-400) 10^3/c mm MPV 9.5 (7.4-10.4) fL Neut % (Auto) 56.2 % Lymph % (Auto) 26.6 % Barbour % (Auto) 7.6 % Eos % (Auto) 8.2 % Baso % (Auto) 1.1 % Neut # (Auto) 4.06 (1.8-7.7) 10^3/u L Lymph # (Auto) 1.9 (0.8-4.8) 10^3/u L Barbour # (Auto) 0.6 (0.2-0.9) 10^3/u L Eos # (Auto) 0.6 (0.0-0.8) 10^3/u L Baso # (Auto) 0.1 (0.0-0.1) 10^3/u L Nucleated RBC % (a uto) 0 % Nucleated RBCs # 0.0 /100WBC Sodium 139 (136-145) mmol/L Potassium 4.2 (3.5-5.1) mmol/L Chloride 103 (98-107) mmol/L Carbon Dioxide 27 (22-29) mmol/L Anion Gap 13.2 (5-19) BUN 8 (6-20) mg/dL Creatinine 0.4 L (0.5-0.9) mg/dL GFR Calculation 179.6 H (90-130) mL/min Glucose 83 (65-115) mg/dL Calculated Osmolal ity 285 (285-295) mOsm/k g Calcium 8.8 (8.5-10.5) mg/dL Total Bilirubin 0.2 (0.15-1.2) mg/dL AST 21 (0-32) U/L ALT 22 (0-33) U/L Alkaline Phosphata se 54 (35-105) IU/L Total Protein 6.9 (6.6-8.7) g/dL Albumin 4.2 (3.5-5.2) g/dL Globulin 2.7 (1.3-4.6) g/dL HCG, Qual (Negative) Urine Color Straw (Yellow) Urine Appearance Clear (CLEAR) Urine pH 8 H (5-7) Ur Specific Gravit y 1.015 (1.005-1.030) Urine Protein Neg (Negative) Urine Glucose (UA) Norm (Normal) Urine Ketones Negative (Negative) Urine Blood Neg (Negative) Urine Nitrate Negative (Negative) Urine Bilirubin Neg (Negative) Prot Sulfosalicyli c Acd Negative (Negative) Urine Urobilinogen Norm (Negative) mg/dL Ur Leukocyte Lili ase Negative (Negative) 01/16/21 Range/Units 10:22 WBC (4.0-10.0) 10^3/ uL RBC (4.1-5.3) 10^6/u L Hgb (11.5-15.3) g/dL Hct (37.0-47.0) % MCV (81-99) fl MCH (28.0-34.0) pg MCHC (30.0-36.0) g/dL RDW (12.1-15.1) % Plt Count (130-400) 10^3/c mm MPV (7.4-10.4) fL Neut % (Auto) % Lymph % (Auto) % Barbour % (Auto) % Eos % (Auto) % Baso % (Auto) % Neut # (Auto) (1.8-7.7) 10^3/u L Lymph # (Auto) (0.8-4.8) 10^3/u L Barbour # (Auto) (0.2-0.9) 10^3/u L Eos # (Auto) (0.0-0.8) 10^3/u L Baso # (Auto) (0.0-0.1) 10^3/u L Nucleated RBC % (a uto) % Nucleated RBCs # /100WBC Sodium (136-145) mmol/L Potassium (3.5-5.1) mmol/L Chloride (98-107) mmol/L Carbon Dioxide (22-29) mmol/L Anion Gap (5-19) BUN (6-20) mg/dL Creatinine (0.5-0.9) mg/dL GFR Calculation (90-130) mL/min Glucose (65-115) mg/dL Calculated Osmolal ity (285-295) mOsm/k g Calcium (8.5-10.5) mg/dL Total Bilirubin (0.15-1.2) mg/dL AST (0-32) U/L ALT (0-33) U/L Alkaline Phosphata se (35-105) IU/L Total Protein (6.6-8.7) g/dL Albumin (3.5-5.2) g/dL Globulin (1.3-4.6) g/dL HCG, Qual Negative (Negative) Urine Color (Yellow) Urine Appearance (CLEAR) Urine pH (5-7) Ur Specific Gravit y (1.005-1.030) Urine Protein (Negative) Urine Glucose (UA) (Normal) Urine Ketones (Negative) Urine Blood (Negative) Urine Nitrate (Negative) Urine Bilirubin (Negative) Prot Sulfosalicyli c Acd (Negative) Urine Urobilinogen (Negative) mg/dL Ur Leukocyte Lili ase (Negative) Discharge Plan Discharge Patient Disposition: Home Clinical Impression: Abdominal pain Condition: Stable Prescriptions: New Zofran 4 mg tablet 4 mg PO Q6H PRN (Reason: nausea and vomiting) Qty: 20 RF: 0 No Action progesterone micronized 200 mg capsule 200 mg PO DAILY@07 RF: 0 ProAir HFA 90 mcg/actuation Hfa Aerosol Inhaler 2 puff INHALATION Q4H PRN (Reason: Shortness Of Breath) RF: 0 amitriptyline 25 mg tablet 25 mg PO BEDTIME RF: 0 ibuprofen 200 mg Tablet 200 - 400 mg PO Q4H PRN (Reason: Pain) RF: 0 estradiol 1 mg tablet 1.5 mg PO DAILY@0700 RF: 0 Discharge Orders: Discharge ED (Routine); Ordered 01/16/21 Ordered By: Jose Jacobson Referrals: Nae Coyne DO [Primary Care Provider] - Discharge Diet: Clear Liquid Discharge Activity: Increase activity as tolerated Patient Instructions: Abdominal Pain (ED), Opioid Safety Activity Restrictions/Additional Instructions: Return if symptoms worsen. Coding Level of Care Code ED Mark Up Designer for Ramirez Fwd Exam Comprehensive
--- NOTE | 2021-01-16 10:11 | CT_ITS ---
WS: [id number] CT ABDOMEN AND PELVIS WITH CONTRAST HISTORY: RIGHT lower quadrant pain for 4 days with diarrhea. TECHNIQUE: Imaging performed of the abdomen and pelvis with IV contrast. Single phase imaging of the abdomen. Coronal and sagittal reformats are submitted. All CT scans at [facility] use at [address] one of these dose optimization techniques: automated exposure control; mA and/or kV adjustment per patient size (includes targeted exams where dose is matched to clinical indication); or iterative re construction. IV CONTRAST: Omnipaque 300; 95 mL IV. Oral contrast: No DLP: 1694.27 mGy.cm COMPARISON: 01/31/2016 Lower thorax: Mild dependent changes at the lung bases. Heart is normal size. No hiatal hernia. Liver/biliary system: Normal size liver. Mild central bile duct dilatation may be physiologic. Gallbladder: Status post cholecystectomy. Common bile duct at the pancreatic head is 9 mm. Common li e duct has increased in size from 2016 from 5 to 9 mm. There is intimal increased soft tissue at the ampulla. Pancreas: Pancreatic duct is normal size at 2 mm. Spleen: Normal size spleen. No mass or infarct. Adrenal glands: Normal. Right kidney: Normal. Left kidney: Normal. Aorta: Normal. Lymphadenopathy: None. Free fluid: None. GI tract: Normal appendix. No GI tract obstruction. There is moderate fecal retention throughout the colon. No wall thickening or edema. Abdominal wall: Unremarkable abdominal wall. No hernia. Pelvis: Uterus is midline. Both ovaries have been removed as per history. No pelvic mass. Urinary karine dder is normal. No free fluid or adenopathy. Bones: Unremarkable. CT/CT abdomen pelvis w con* [id number] IMPRESSION: 1. Normal appendix. 2. Mild constipation. No colonic wall thickening. 3. Mild increase in size of the common bile duct dilatation since 2016. May be physiologic and related to the cholecystectomy. There is increased soft tissue at the distal common bile duct which may be normal duodenum and the pancreatic head. If liver function studies are abnormal consider follow-up MRCP.
[2021-01-16 10:31] VITALS: RESP 17
[2021-01-16] MEDS: morphine 4 mg/mL SDV 1 mL IVP (10:31)
[2021-01-16] MEDS: sodium chloride 0.9% 1,000 ML 999 ML IV (10:31)
[2021-01-16] MEDS: ondansetron 2 mg/ML SDV 2 mL 4 MG IVP (10:32)
[2021-01-16 10:35] VITALS: BP 143/82; PULSE 67; RESP 18; O2SAT 99
[2021-01-16 10:37] LABS: Basophils # 0.1 10^3/uL (0.0-0.1); Basophils % 1.1 %; Eosinophils # 0.6 10^3/uL (0.0-0.8); Eosinophils % 8.2 %; Hematocrit 42.4 % (37.0-47.0); Hemoglobin 14.6 g/dL (11.5-15.3); Lymphocytes # 1.9 10^3/uL (0.8-4.8); Lymphocytes % 26.6 %; Mean Corpuscular HGB Conc 34.4 g/dL (30.0-36.0); Mean Corpuscular Hemoglobin 32.7 pg (28.0-34.0); Mean Corpuscular Volume 95.1 fl (81-99); Mean Platelet Volume 9.5 fL (7.4-10.4); Monocytes # 0.6 10^3/uL (0.2-0.9); Monocytes % 7.6 %; Neutrophils # 4.06 10^3/uL (1.8-7.7); Neutrophils % 56.2 %; Nucleated Red Blood Cells % 0 %; Platelet Count 277 10^3/cmm (130-400); Red Blood Count 4.46 10^6/uL (4.1-5.3); Red Cell Distribution Width 12.6 % (12.1-15.1); White Blood Count 7.2 10^3/uL (4.0-10.0)
[2021-01-16 10:46] LABS: HCG, Serum Qual Negative (Negative)
[2021-01-16 10:52] LABS: Alanine Aminotransferase 22 U/L (0-33); Albumin Level 4.2 g/dL (3.5-5.2); Alkaline Phosphatase 54 IU/L (35-105); Aspartate Amino Transferase 21 U/L (0-32); Blood Urea Nitrogen 8 mg/dL (6-20); Calcium 8.8 mg/dL (8.5-10.5); Carbon Dioxide 27 mmol/L (22-29); Chloride 103 mmol/L (98-107); Globulin 2.7 g/dL (1.3-4.6); Glomerular Filtration Rate 179.6 mL/min (90-130); Glucose 83 mg/dL (65-115); Osmolality Calculated 285 mOsm/kg (285-295); Sodium 139 mmol/L (136-145); Total Bilirubin 0.2 mg/dL (0.15-1.2); Total Protein 6.9 g/dL (6.6-8.7)
[2021-01-16 10:54] LABS: Anion Gap 13.2 (5-19); Potassium 4.2 mmol/L (3.5-5.1)
[2021-01-16 11:12] VITALS: BP 124/86; PULSE 58; RESP 14; TEMP 36.4; O2SAT 98
--- NOTE | 2021-01-16 11:13 | PC.NURSE ---
Assumed care of patient at this time. She ambulates to restroom and back without incident.
[2021-01-16] MEDS: iohexol 300 mg/mL 100 mL Btl IV (11:53)
[2021-01-16 12:47] VITALS: BP 132/81; PULSE 72; RESP 14; TEMP 36.7; O2SAT 99
[2021-01-16 13:26] VITALS: BP 111/62; PULSE 98; RESP 14; TEMP 36.5; O2SAT 98
== END 2021-01-16 13:30 | disposition home or self-care (01) ==
PROVIDERS: Emergency Provider Family Medicine; PCP Family Medicine
DX: R10.9 Unspecified abdominal pain (principal); F17.210 Nicotine dependence, cigarettes, uncomplicated
CPT/HCPCS: 74177; 80053; 81003; 84703; 85025; 96361; 96374; 96375; 99284; J2270; J2405; J7030; Q9967

== ENCOUNTER → 2021-07-16 11:30 | Outpatient (BNVA) | payer BC, SELFPAY | PROVIDERS: PCP Family Medicine; Visit Provider Obstetrics & Gynecology | DX: R68.82 Decreased libido (principal); Z12.4 Encounter for screening for malignant neoplasm of cervix | CPT/HCPCS: 84403; 87624 ==

== ENCOUNTER 2021-10-19 17:05 | Emergency (ER) | payer BC, SELFPAY ==
[2021-10-19 17:16] VITALS: BP 140/82; PULSE 81; RESP 18; TEMP 36.4; O2SAT 97; BMI 27.4
--- NOTE | 2021-10-19 17:21 | XRR_ITS ---
PROCEDURE INFORMATION: Exam: XR Right Hand Exam date and time: 10/19/2021 5:38 PM Age: 36 years old Clinical indication: Pain; Hand; Right; Additional info: Injury TECHNIQUE: Imaging protocol: XR Right hand. Views: 3 or more views. COMPARISON: No relevant prior studies available. FINDINGS: Bones/joints: Normal. Soft tissues: Normal. XR/XR hand RT min 3V* [id number] IMPRESSION: No acute findings.
--- NOTE | 2021-10-19 17:21 | W.ED.ANIMALB ---
HPI - Animal Bite General: Chief Complaint: Animal Bite Stated Complaint: bite on right hand from dog Time Seen by Provider: 10/19/21 17:20 History of Present Illness: 36-year-old female comes in today with complaints of injury to the right hand. Patient reports that her dog last night stepped at her and bit her right hand. No break in the skin is noted. Patient does have some mild ecchymosis and bruising to the dorsal hand. Patient reports pain and discomfort in the dorsal right hand. Associated symptoms: Deny fever(s) Review of Systems General: Reports: 10 or more systems reviewed and unremarkable except in HPI and below Const: Denies: fever(s) Card: Denies: chest pain Resp: Denies: dyspnea Musc: Reports: extremity pain and extremity swelling Skin/Breast: Denies: new lesions PFSH ED PFSH: Medical History (Updated 10/19/21 @ 17:55 by MARCELLA Serna) Ovarian endometriosis 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 Found to have bilateral endometriomas at time of laparoscopy on 03/13/2019 resulting in BSO being performed. Surgical menopause, symptomatic 03/13/2019: Laparoscopic BSO due to endometriomas Surgical History History of cholecystectomy (09/13/09) Laparoscopic. Performed by Dr. Briones at [facility] in [place], [place]. History of tubal ligation (05/13/10) Performed at time of section. Performed by Dr. Perez at performed at [facility] in [place], [place]. Hx of section (07/24/08) Bleeding placenta previa. J incision of the uterus. Performed by Dr. Steve Davis at [facility] in [place], [place] Previous section (05/13/10) Repeat section with BTL. Performed by Dr. Perez at [facility] in [place], [place]. S/P bilateral salpingo-oophorectomy (03/13/19) Laparoscopic BSO with lysis of omental and ovarian adhesions. Diagnosis: Bilateral endometriomas. Performed by Dr. Steve Davis at [facility] in [place], [place]. Status post surgery (01/29/14) Excision of incisional endometriosis--She had an approximately 4 cm mass involving the skin, subcutaneous tissue and a small area of the fascia at the right corner of her Pfannenstiel incision.? Performed by Dr. Steve Davis at [facility] in [place], [place]. Family History (Updated 07/16/21 @ 10:45 by Ana Maria Cota LPN) Mother Hypertension Hyperlipidemia Grandmother Hypertension Maternal Breast cancer Maternal Mother Heart disease Denies family history of Diabetes CAD (coronary artery disease) Clotting disorder Chronic kidney disease (CKD) Bleeding disorder Thyroid disease Stroke Social History (Updated 07/16/21 @ 10:46 by Ana Maria Cota LPN) Smoking and tobacco status: current every day smoker cigarettes Packs smoked per day: 1 [ Other cigarette details: Started smoking at age 14] Alcohol intake: never Desire information about substance/drug rehabilitation?: No (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) Additional social history: Well balanced diet Female Reproductive History: Date of last menstrual period: 03/13/19 Physical Exam Const: COMMON NORMALS: alert HENMT: COMMON NORMALS: normocephalic HEAD & SCALP: normocephalic Neck/C-Spine: COMMON NORMALS: full ROM Resp: COMMON NORMALS: normal respiratory effort and clear to auscultation bilaterally AUSCULTATION: clear to auscultation bilaterally Cardio: COMMON NORMALS: regular rate RATE: regular rate Extremity: RIGHT UPPER EXTREMITY: Yes hand & digits (Normal tendon function, mild ecchymosis and swelling, no skin injury.) Right hand and digits: Yes inspection, Yes palpation, Yes ROM exam, Yes neurovascular exam and Yes tendon exam Neuro: SENSORIUM/ORIENTATION: Yes alert Course Vital Signs: Vital signs: Vital Signs Temperature 97.6 F 10/19/21 17:16 Pulse Rate 81 10/19/21 17:16 Respiratory Rate 18 10/19/21 17:16 Blood Pressure 140/82 10/19/21 17:16 Pulse Oximetry 97 10/19/21 17:16 MDM - Animal Bite Medical Decision Making 36-year-old female reports being bit by her old dog last night to the right hand. Patient has some pain and discomfort with movement of the hand. On exam there is no break in the skin. Patient does have some mild ecchymosis and swelling to the dorsal hand. Normal range of motion and tendon function is noted. Differential diagnosis includes fracture, contusion, dislocation. X-ray noted no fracture or dislocation. Feel the patient probably has a contusion with some swelling causing increased pain and discomfort. Recommended Gregory wrap and ice packs to the area. Patient reported understanding of care plan and need for follow-up or return to the ER. Without any signs of break in the skin patient is very low risk for any infection. Discharge Plan Discharge Patient Disposition: Home Clinical Impression: Contusion of hand, right Qualifiers: Encounter type: initial encounter Qualified Code(s): S60.221A - Contusion of right hand, initial encounter Condition: Stable Prescriptions: No Action progesterone micronized 200 mg capsule 200 mg PO DAILY@07 Qty: 90 4RF estrogens-methyltestosterone 0.625-1.25 mg tablet 1 tab PO DAILY Qty: 30 5RF estradiol 1 mg tablet 1.5 mg PO DAILY@0700 Qty: 30 0RF Hold Instructions: Doctor's Order ProAir HFA 90 mcg/actuation Hfa Aerosol Inhaler 2 puff INHALATION Q4H PRN (Reason: Shortness Of Breath) 0RF Discharge Orders: Discharge ED (Routine); Ordered 10/19/21 Ordered By: Maverick Romero Discharge Diet: Usual diet Discharge Activity: Increase activity as tolerated Patient Instructions: Contusion in Adults (ED) Activity Restrictions/Additional Instructions: Activity as tolerated. Wear an elastic bandage for comfort. Use ice packs to help with pain and swelling. Use Tylenol and ibuprofen for further pain relief. Drink plenty of water with medication. Follow-up with primary care for further instruction. Return to ER for new concerns. Coding Level of Care Code ED Pie Baker for Ramirez Fwgeorge Exam Detailed
== END 2021-10-19 18:07 | disposition home or self-care (01) ==
PROVIDERS: Emergency Provider Nurse Practitioner Family
DX: S61.451A Open bite of right hand, initial encounter (principal); W54.0XXA Bitten by dog, initial encounter
CPT/HCPCS: 73130; 99283

== ENCOUNTER 2022-03-17 13:14 | Emergency (ER) | payer BC, SELFPAY ==
[2022-03-17 13:21] VITALS: BP 136/90; PULSE 86; RESP 16; TEMP 36.5; O2SAT 98; BMI 28.3
--- NOTE | 2022-03-17 13:43 | ED_ITS ---
HPI - Allergic Reaction General: Chief complaint: Allergic Reaction Stated complaint: Bee sting reaction Time Seen by Provider: 03/17/22 13:28 History of Present Illness: HPI narrative: Patient is a 36-year-old female comes to the ED with allergic reaction. 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 She has had to use an EpiPen in the past for bee stings. Today she was stung by a bee. She describes feeling tingly sensation and hands arms and face. She also feels lightheaded and is starting developed rash on face. She is also reporting some throat tightness that she describes as a lump in her throat. Associated symptoms: Deny abdominal pain, nausea or vomiting Review of Systems 2 Const: Denies: fever(s), chills or fatigue Eyes: Denies: change in vision or eye discomfort ENMT: Denies: throat pain, odynophagia, nasal discharge or nasal congestion Card: Denies: chest pain, palpitations, edema, swelling of feet/ankles, dyspnea on exertion or orthopnea Resp: Denies: dyspnea, productive cough or non-productive cough GI: Denies: abdominal pain, nausea, vomiting, diarrhea, constipation or hematochezia : Denies: flank pain, dysuria or hematuria Musc: Denies: neck pain, back pain or extremity swelling Skin/Breast: Denies: rash or new lesions Neuro: Denies: headache(s), numbness in extremities or weakness in extremities All/Imm: Reports: urticaria, throat swelling and other (tingling sensation in arms and face) [facility] ED PFSH: Medical History (Updated 03/17/22 @ 15:22 by ANGELES Martin) Ovarian endometriosis 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 Found to have bilateral endometriomas at time of laparoscopy on 03/13/2019 resulting in BSO being performed. Surgical menopause, symptomatic 03/13/2019: Laparoscopic BSO due to endometriomas Surgical History History of cholecystectomy (09/13/09) Laparoscopic. Performed by Dr. Briones at [facility] in [place], [place]. History of tubal ligation (05/13/10) Performed at time of section. Performed by Dr. Perez at performed at [facility] in [place], [place]. Hx of section (07/24/08) Bleeding placenta previa. J incision of the uterus. Performed by Dr. Steve Davis at [facility] in [place], [place] Previous section (05/13/10) Repeat section with BTL. Performed by Dr. Perez at [facility] in [place], [place]. S/P bilateral salpingo-oophorectomy (03/13/19) Laparoscopic BSO with lysis of omental and ovarian adhesions. Diagnosis: Bilateral endometriomas. Performed by Dr. Steve Davis at [facility] in [place], [place]. Status post surgery (01/29/14) Excision of incisional endometriosis--She had an approximately 4 cm mass involving the skin, subcutaneous tissue and a small area of the fascia at the right corner of her Pfannenstiel incision.? Performed by Dr. Steve Davis at [facility] in [place], [place]. Family History (Updated 07/16/21 @ 10:45 by Ana Maria Cota LPN) Mother Hypertension Hyperlipidemia Grandmother Hypertension Maternal Breast cancer Maternal Mother Heart disease Denies family history of Diabetes CAD (coronary artery disease) Clotting disorder Chronic kidney disease (CKD) Bleeding disorder Thyroid disease Stroke Social History (Updated 07/16/21 @ 10:46 by Ana Maria Cota LPN) Smoking and tobacco status: current every day smoker cigarettes Packs smoked per day: 1 [ Other cigarette details: Started smoking at age 14] Alcohol intake: never Desire information about substance/drug rehabilitation?: No (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) Additional social history: Well balanced diet Female Reproductive History: Date of last menstrual period: 03/13/19 Physical Exam Const: COMMON NORMALS: patient oriented x3 and alert GENERAL APPEARANCE: cooperative HENMT: COMMON NORMALS: normocephalic HEAD & SCALP: normocephalic MOUTH: Normal oral and palatal mucosa present THROAT: posterior oropharynx normal and uvula midline Neck/C-Spine: COMMON NORMALS: supple GENERAL: Yes normal visual inspection Resp: COMMON NORMALS: normal respiratory effort, No retractions, No use of accessory muscles and clear to auscultation bilaterally AUSCULTATION: clear to auscultation bilaterally Cardio: COMMON NORMALS: regular rate, regular rhythm, S1 normal heart sound present, S2 normal heart sound present, No gallops present (Cardio), No clicks present (Cardio), No murmurs present (Cardio) and Peripheral pulses 2+ throughout RATE: regular rate RHYTHM: regular rhythm HEART SOUNDS: S1 normal heart sound present and S2 normal heart sound present PERIPHERAL PULSES: Peripheral pulses 2+ throughout GI: COMMON NORMALS: Normal to inspection, nondistended, normoactive bowel sounds present, Soft to palpation, non-tender and no masses PALPATION: Yes Soft to palpation : COMMON NORMALS: Yes no CVA tenderness BLADDER/KIDNEY EXAM: Yes no CVA tenderness Back/Pelvis: COMMON NORMALS: no CVA tenderness Neuro: COMMON NORMALS: patient oriented x3 SENSORIUM/ORIENTATION: Yes alert GAIT: Yes Normal gait present Skin: NARRATIVE SKIN EXAM: Patient's face had a red erythemic macular rash. GENERAL SKIN EXAM: dry skin Course Vital Signs: Vital signs: Vital Signs Temperature 97.7 F 03/17/22 13:21 Pulse Rate 80 03/17/22 15:13 Respiratory Rate 14 03/17/22 15:13 Blood Pressure 124/82 03/17/22 15:13 Pulse Oximetry 96 03/17/22 15:13 Oxygen Delivery Me thod 03/17/22 15:13 MDM - Allergic Reaction Medical Decision Making Patient is a 36-year-old female comes to the ED with bee sting. History of allergies to bee stings and has had an anaphylactic reaction in the past after being stung by a bee. She is complaining of having some throat swelling/t ightness urticaria and tingling sensation in face and arms. Vitals are stable. Patient was given a dose of IM epinephrine and Solu-Medrol and Benadryl. Her symptoms resolved after meds. She was watched for approximately an hour and a half after epi was given and she was not having any reoccurring symptoms and was feeling normal. She was stable for discharge home and sent home with a prescription for EpiPen and prednisone. Told to follow-up with her PCP in the next week for reevaluation. Patient understood and agreed with plan. Discharge Plan Discharge Patient Disposition: Home Clinical Impression: Anaphylactic reaction to bee sting Qualifiers: Encounter type: initial encounter Injury intent: accidental or unintentional Qualified Code(s): T63.441A - Toxic effect of venom of bees, accidental (uninte ntional), initial encounter Condition: Stable Prescriptions: New epinephrine 0.3 mg/0.3 mL auto-injector 0.3 mg IM Q20M PRN (Reason: anaphylaxis) Qty: 2 0RF Rx Instructions: do not exceed 3 doses per episode prednisone 20 mg tablet 20 mg PO BID 3 Days Qty: 6 0RF No Action progesterone micronized 200 mg capsule 200 mg PO DAILY@07 Qty: 90 4RF estradiol 1 mg tablet 1.5 mg PO DAILY@0700 Qty: 30 0RF Hold Instructions: Doctor's Order estrogens-methyltestosterone 0.625-1.25 mg tablet 1 tab PO DAILY Qty: 30 5RF ProAir HFA 90 mcg/actuation Hfa Aerosol Inhaler 2 puff INHALATION Q4H PRN (Reason: Shortness Of Breath) Discharge Orders: Discharge ED (Routine); Ordered 03/17/22 Ordered By: Prosper Roman Referrals: Nae Coyne DO [Primary Care Provider] - Discharge Diet: Regular Discharge Activity: Increase activity as tolerated Patient Instructions: Anaphylaxis (ED) Activity Restrictions/Additional Instructions: Follow-up with medical provider as directed. Take medications as prescribed. Return to the ER or your medical provider if condition worsens. Please read and understand discharge instructions. Thank you for choosing [facility] for your healthcare needs today. Please realize this is an emergency room and that we are providing you with a medical screening exam and this may not be complete and all inclusive of all the testing and or work up that you may need to determine your ailment or severity of your illness. It is very important that you follow up as instructed or that you return to the Emergency Department should you have concerns or if your condition changes or worsens in any way. Stand Alone Forms: Work/School Release Coding Level of Care Code ED Director Post for Ramirez Huizar
[2022-03-17] MEDS: EPINEPHrine 1 mg/mL INJ 0.3 MG IM (13:49)
[2022-03-17] MEDS: diphenhydrAMINE 50 mg/mL SDV 1mL IM (13:52)
[2022-03-17 15:13] VITALS: BP 124/82; PULSE 80; RESP 14; O2SAT 96
== END 2022-03-17 15:29 | disposition home or self-care (01) ==
PROVIDERS: Emergency Provider Physician Assistant; PCP Family Medicine
DX: T63.441A Toxic effect of venom of bees, accidental (unintentional), initial encounter (principal); F17.210 Nicotine dependence, cigarettes, uncomplicated
CPT/HCPCS: 96372; 99284; J0171; J1200; J2930

== ENCOUNTER 2022-09-30 07:39 | Outpatient (CLI) | payer BC, SELFPAY ==
--- NOTE | 2022-09-30 08:02 | US_ITS ---
WS: [id number] DIAGNOSTIC BILATERAL DIGITAL BREAST TOMOSYNTHESIS MAMMOGRAPHY WITH CAD RIGHT breast ultrasound, limited. HISTORY: LUMP IN RT BREAST COMPARISON: None available. TECHNIQUE: Bilateral craniocaudad, mediolateral oblique, and mediolateral views are submitted with to mosynthambrocio and SM. Computer aided detection utilized. Breast composition: There are scattered areas of fibroglandular density. No masses or calcifications. No distortion. No nipple retraction. There is no underlying abnormality RIGHT breast at the site of the palpable marker. RIGHT breast ultrasound, limited. Ultrasound is directed to the palpable area at 2:00. There is no underlying mass or distortion. Vandana l appearance of the soft tissues. US/US breast RT limited* [id number] IMPRESSION: BI-RADS: 2-Benign FOLLOW UP: 1 Year Follow-up
== END 2022-09-30 07:40 | disposition home or self-care (01) ==
PROVIDERS: PCP Family Medicine; Visit Provider Obstetrics & Gynecology
DX: N63.12 Unspecified lump in the right breast, upper inner quadrant (principal)
CPT/HCPCS: 76642; 77062; G0279

== ENCOUNTER 2023-03-29 17:11 | Emergency (ER) | payer BC, SELFPAY ==
[2023-03-29 17:49] VITALS: BP 158/108; PULSE 70; RESP 17; TEMP 36.4; O2SAT 100; BMI 28.6
--- NOTE | 2023-03-29 17:52 | XRR_ITS ---
PROCEDURE INFORMATION: Exam: XR Left Hand Exam date and time: 03/29/2023 7:07 PM Age: 37 years old Clinical indication: Injury or trauma; Other: Washer dropped on left hand; Sprain or strain; TECHNIQUE: Imaging protocol: Radiologic exam of the left hand. Views: 3 or more views. COMPARISON: No relevant prior studies available. FINDINGS: Limitations: Metallic rings partially obscure visualization of the proximal phalanges of the 2nd and 4th fingers. Bones/joints: No acute fracture or other acute osseous abnormality. Minimal degenerative change of the distal interphalangeal joints. No acute joint abnormality noted. Soft tissues: Unremarkable. XR/XR hand LT min 3V* [id number] IMPRESSION: 1. Metallic rings partially obscure visualization of the proximal phalanges of the 2nd and 4th fingers. 2. No acute fracture demonstrated.
--- NOTE | 2023-03-29 17:56 | W.ED.EXTPRO ---
HPI - Extremity Problem General: Chief complaint: Extremity Injury, Upper Stated complaint: left hand, middle finger injury Time Seen by Provider: 03/29/23 17:54 History of Present Illness: 37-year-old female comes in today with complaints of pain to the left middle finger after injuring it yesterday. Patient jammed her middle finger yesterday while doing laundry. Patient had went to put the laundry into the wash machine when she hit the edge of the wash machine with her finger. Since then patient has had increased pain and discomfort to the finger to the point she is unable to straighten it today. Patient has some mild swelling noted to the PIP joint of the middle finger. Cap refill is intact. Patient appears nontoxic. Patient appears in mild to moderate pain. Associated symptoms: Deny chest pain or fever(s) Review of Systems General: Reports: 10 or more systems reviewed and unremarkable except in HPI and below Const: Denies: fever(s) Card: Denies: chest pain Resp: Denies: dyspnea GI: Denies: vomiting Musc: Reports: extremity pain and extremity swelling PFS ED PFSH: Medical History (Updated 03/29/23 @ 18:15 by MARCELLA Serna) Ovarian endometriosis 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 Found to have bilateral endometriomas at time of laparoscopy on 03/13/2019 resulting in BSO being performed. Surgical menopause, symptomatic 03/13/2019: Laparoscopic BSO due to endometriomas Surgical History History of cholecystectomy (09/13/09) Laparoscopic. Performed by Dr. Briones at [facility] in [place], [place]. History of tubal ligation (05/13/10) Performed at time of section. Performed by Dr. Perez at performed at [facility] in [place], [place]. Hx of section (07/24/08) Bleeding placenta previa. J incision of the uterus. Performed by Dr. Steve Davis at [facility] in [place], [place] Previous section (05/13/10) Repeat section with BTL. Performed by Dr. Perez at [facility] in [place], [place]. S/P bilateral salpingo-oophorectomy (03/13/19) Laparoscopic BSO with lysis of omental and ovarian adhesions. Diagnosis: Bilateral endometriomas. Performed by Dr. Steve Davis at [facility] in [place], [place]. Status post surgery (01/29/14) Excision of incisional endometriosis--She had an approximately 4 cm mass involving the skin, subcutaneous tissue and a small area of the fascia at the right corner of her Pfannenstiel incision.? Performed by Dr. Steve Davis at [facility] in [place], [place]. Family History Mother Hypertension Hyperlipidemia Grandmother Hypertension Maternal Breast cancer Maternal Mother Heart disease Denies family history of Diabetes CAD (coronary artery disease) Clotting disorder Chronic kidney disease (CKD) Bleeding disorder Thyroid disease Stroke Social History Additional social history: Well balanced diet Physical Exam Const: COMMON NORMALS: alert HENMT: COMMON NORMALS: normocephalic HEAD & SCALP: normocephalic Neck/C-Spine: COMMON NORMALS: full ROM Resp: COMMON NORMALS: normal respiratory effort Cardio: COMMON NORMALS: regular rate RATE: regular rate Back/Pelvis: COMMON NORMALS: thoracic and lumbar spine normal to inspection Extremity: LEFT UPPER EXTREMITY: Yes hand & digits (Tenderness left middle finger PIP joint) Left hand and digits: Yes inspection, Yes palpation, Yes ROM (Decreased due to pain) and Yes neurovascular exam Neuro: SENSORIUM/ORIENTATION: Yes alert Skin: COMMON NORMALS: turgor normal GENERAL SKIN EXAM: turgor normal Course Vital Signs: Vital signs: Vital Signs Temperature 97.6 F 03/29/23 17:49 Pulse Rate 70 03/29/23 17:49 Respiratory Rate 17 03/29/23 17:49 Blood Pressure 158/108 03/29/23 17:49 Pulse Oximetry 100 03/29/23 17:49 Oxygen Delivery Me thod Room Air 03/29/23 17:49 MDM - Extremity (Nontraumatic) Medical Decision Making 37-year-old female comes in today for complaints of injury to the left middle finger. Injury occurred yesterday. Patient has tenderness to the PIP joint of the third digit. Cap refill is intact. Sensation is intact. Patient guarded movement due to pain. Differential diagnosis includes finger sprain, jammed phalanx, fracture. X-ray noted no fracture or dislocation. Reviewed exam with patient with recommendations for treatment for finger sprain. Patient reported understanding. Lab Data Radiology Impressions Hand X-Ray 03/29/23 17:52 IMPRESSION: 1. Metallic rings partially obscure visualization of the proximal phalanges of the 2nd and 4th fingers. 2. No acute fracture demonstrated. All radiology interpretation(s) finalized by discharge Discharge Plan Discharge Patient Disposition: Home Clinical Impression: Jammed interphalangeal joint of finger of left hand Qualifiers: Encounter type: initial encounter Qualified Code(s): S69.92XA - Unspecified injury of left wrist, hand and finger(s), initial encounter Condition: Stable Prescriptions: New hydrocodone-acetaminophen 5-325 mg tablet 1 tab PO Q8H PRN (Reason: pain (scale score 7-10)) Qty: 6 0RF No Action progesterone micronized 200 mg capsule 200 mg PO DAILY@07 Qty: 90 5RF estrogens-methyltestosterone 0.625-1.25 mg tablet 1 tab PO DAILY Qty: 28 5RF ProAir HFA 90 mcg/actuation Hfa Aerosol Inhaler 2 puff INHALATION Q4H PRN (Reason: Shortness Of Breath) epinephrine 0.3 mg/0.3 mL auto-injector 0.3 mg IM Q20M PRN (Reason: anaphylaxis) Qty: 2 0RF Rx Instructions: do not exceed 3 doses per episode Discharge Orders: Discharge ED (Routine); Ordered 03/29/23 Ordered By: Maverick Romero Referrals: Nae Coyne DO [Primary Care Provider] - Discharge Diet: Usual diet Discharge Activity: Increase activity as tolerated Patient Instructions: Finger Sprain (ED) Activity Restrictions/Additional Instructions: Wear finger splint for comfort for the next week. Then increase activity as tolerated. Use acetaminophen and ibuprofen for pain. Use hydrocodone for severe pain. Follow-up with primary care in 1 week for recheck. Return to ED for new concerns. Coding Level of Care Code ED Credit Control Clerk for Ramirez Huizar
[2023-03-29] MEDS: HYDROcodone-acetaminophen 5-325 mg Tablet 1 TAB PO (18:08)
[2023-03-29] MEDS: ketorolac 30 mg/mL INJ IM (18:09)
== END 2023-03-29 18:24 | disposition home or self-care (01) ==
PROVIDERS: Emergency Provider Nurse Practitioner Family; PCP Family Medicine
DX: S69.82XA Other specified injuries of left wrist, hand and finger(s), initial encounter (principal); W22.09XA Striking against other stationary object, initial encounter; Y93.E2 Activity, laundry
CPT/HCPCS: 73130; 96372; 99284; J1885

== ENCOUNTER 2023-12-08 09:39 | Emergency (ER) | payer BC, SELFPAY ==
[2023-12-08 10:06] VITALS: BP 139/99; PULSE 92; RESP 16; TEMP 36.9; O2SAT 98; BMI 29.2
[2023-12-08 10:55] LABS: Basophils # 0.1 10^3/uL (0.0-0.1); Basophils % 0.7 %; Eosinophils # 0.3 10^3/uL (0.0-0.8); Eosinophils % 3.4 %; Hematocrit 45.1 % (36-47); Lymphocytes # 2.9 10^3/uL (0.8-4.8); Lymphocytes % 30.6 %; Mean Corpuscular HGB Conc 35.3 g/dL (30-55); Mean Corpuscular Hemoglobin 33.8 pg (27-33); Mean Platelet Volume 9.1 fL (7.4-10.4); Monocytes # 0.6 10^3/uL (0.2-0.9); Monocytes % 6.6 %; Neutrophils # 5.47 10^3/uL (1.8-7.7); Neutrophils % 58.4 %; Nucleated Red Blood Cells % 0 %; Platelet Count 315 10^3/cmm (157-399); Red Cell Distribution Width 12.8 % (12.1-15.1); White Blood Count 9.38 10^3/uL (3.29-11.43)
[2023-12-08 11:13] LABS: HCG, Serum Qual Negative (Negative)
[2023-12-08 11:17] LABS: Alanine Aminotransferase 109 U/L (0-33); Albumin Level 4.3 g/dL (3.5-5.2); Alkaline Phosphatase 66 U/L (35-105); Aspartate Amino Transferase 59 U/L (0-32); Blood Urea Nitrogen 11 mg/dL (6-20); Calcium 9.1 mg/dL (8.5-10.5); Carbon Dioxide 20 mmol/L (22-29); Chloride 106 mmol/L (98-107); Creatinine Clr Calc Pharmacy 150.3187; Globulin 2.9 g/dL (1.3-4.6); Glomerular Filtration Rate 136.6 mL/min (90-130); Glucose 87 mg/dL (65-115); Lipase 20 U/L (13-60); Osmolality Calculated 287 mOsm/kg (285-295); Sodium 139 mmol/L (136-145); Total Bilirubin 0.3 mg/dL (0.15-1.2); Total Protein 7.2 g/dL (6.6-8.7)
[2023-12-08 11:18] LABS: Anion Gap 17.4 (5-19); Potassium 4.4 mmol/L (3.5-5.1)
--- NOTE | 2023-12-08 11:58 | W.ED.ABDPA2 ---
HPI - Abdominal Pain General: Chief Complaint: Abdominal Pain Stated Complaint: Abd pains Time Seen by Provider: 12/08/23 11:57 History of Present Illness: 38-year-old female presents emergency room left lower quadrant abdominal pain very cramping in nature. Worse with movement and with bowel movements. She denies any hematochezia melena hematemesis coffee-ground emesis diarrhea or constipation. She denies any dysuria urgency or frequency radiates from the left lower quadrant down into the pelvis. Onset (ago): day(s) (2-3) Location: [facility] Severity: moderate Associated Symptoms: Reports nausea; Denies chills, dysuria, fever(s) and vomiting Review of Systems Const: Denies: fever(s) or chills Card: Denies: chest pain Resp: Denies: dyspnea GI: Reports: abdominal pain and nausea; Denies: vomiting : Denies: dysuria, urinary frequency or urinary urgency Musc: Denies: neck pain or back pain Skin/Breast: Denies: rash PFSH ED PFSH: Medical History Maxillary sinusitis, acute Sinus headache Surgical menopause, symptomatic 03/13/2019: Laparoscopic BSO due to endometriomas Ovarian endometriosis 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 Found to have bilateral endometriomas at time of laparoscopy on 03/13/2019 resulting in BSO being performed. Surgical History S/P bilateral salpingo-oophorectomy (03/13/19) Laparoscopic BSO with lysis of omental and ovarian adhesions. Diagnosis: Bilateral endometriomas. Performed by Dr. Steve Davis at [facility] in [place], [place]. History of cholecystectomy (09/13/09) Laparoscopic. Performed by Dr. Briones at [facility] in [place], [place]. Hx of section (07/24/08) Bleeding placenta previa. J incision of the uterus. Performed by Dr. Steve Davis at [facility] in [place], [place] History of tubal ligation (05/13/10) Performed at time of section. Performed by Dr. Perez at performed at [facility] in [place], [place]. Previous section (05/13/10) Repeat section with BTL. Performed by Dr. Perez at [facility] in [place], [place]. Status post surgery (01/29/14) Excision of incisional endometriosis--She had an approximately 4 cm mass involving the skin, subcutaneous tissue and a small area of the fascia at the right corner of her Pfannenstiel incision.? Performed by Dr. Steve Davis at [facility] in [place], [place]. Family History Mother Hypertension Hyperlipidemia Grandmother Hypertension Maternal Breast cancer Maternal Mother Heart disease Denies family history of Diabetes CAD (coronary artery disease) Clotting disorder Chronic kidney disease (CKD) Bleeding disorder Thyroid disease Stroke Social History Smoking and tobacco/nicotine status: current every day tobacco/nicotine user cigarettes Packs smoked per day: 1 Years cigarettes smoked: 24 Additional social history: Well balanced diet Physical Exam Const: GENERAL APPEARANCE: cooperative ORIENTATION/CONSCIOUSNESS: Yes awake, Yes oriented to person, Yes oriented to place and Yes oriented to time HENMT: COMMON NORMALS: normocephalic, atraumatic and hearing grossly normal bilaterally HEAD & SCALP: normocephalic and atraumatic Resp: COMMON NORMALS: normal respiratory effort, No retractions, No use of accessory muscles and clear to auscultation bilaterally AUSCULTATION: clear to auscultation bilaterally Cardio: COMMON NORMALS: regular rate, regular rhythm and No murmurs present (Cardio) RATE: regular rate RHYTHM: regular rhythm GI: COMMON NORMALS: No hepatosplenomegaly present AUSCULTATION: Yes normoactive bowel sounds PALPATION: Yes Tenderness to palpation present (GI) Details: LLQ, No Guarding due to palpation present (GI) and Yes No hepatosplenomegaly present : BLADDER/KIDNEY EXAM: Yes CVA tenderness on the left Back/Pelvis: GENERAL BACK: Yes CVA tenderness Extremity: COMMON NORMALS: normal to inspection, capillary refill normal, no clubbing, cyanosis or edema, no calf tenderness and no pedal edema Neuro: SENSORIUM/ORIENTATION: Yes oriented to person, Yes oriented to place and Yes oriented to time Skin: COMMON NORMALS: no rashes or lesions noted GENERAL SKIN EXAM: no rashes or lesions noted Course Vital Signs: Vital signs: Vital Signs Temperature 98.5 F 12/08/23 10:06 Pulse Rate 83 12/08/23 14:03 Respiratory Rate 18 12/08/23 14:03 Blood Pressure 143/108 12/08/23 14:03 Pulse Oximetry 98 12/08/23 14:03 Oxygen Delivery Me thod Room Air 12/08/23 13:36 MDM - Abdominal Pain Medical Decision Making No leukocytosis CT shows mild colitis will start on Augmentin liquid diet for 2 to 3 days and advance as tolerated pain medications nausea medications as needed follow-up with primary care return if symptoms are worsening Lab Data 12/08/23 10:32 12/08/23 10:32 Labs/Radiology: Radiology Impressions Abdomen/Pelvis CT 12/08/23 12:06 IMPRESSION: 1. Very minimal submucosal edema in the cecum and proximal sigmoid. Early changes of a mild colitis to be considered. No diverticular disease or acute diverticulitis. 2. Normal appendix. 3. No ascites or adenopathy. 4. Prior cholecystectomy. Laboratory Results WBC 9.38 10^3/uL (3.29-11.43) 12/08/23 10:32 RBC 4.70 10^6/uL (3.85-5.65) 12/08/23 10:32 Hgb 15.90 g/dL (11.27-16.99) 12/08/23 10:32 Hct 45.1 % (36-47) 12/08/23 10:32 MCV 96.0 fl (85-98) 12/08/23 10:32 MCH 33.8 pg (27-33) H 12/08/23 10:32 MCHC 35.3 g/dL (30-55) 12/08/23 10:32 RDW 12.8 % (12.1-15.1) 12/08/23 10:32 Plt Count 315 10^3/cmm (157-399) 12/08/23 10:32 MPV 9.1 fL (7.4-10.4) 12/08/23 10:32 Neut % (Auto) 58.4 % 12/08/23 10:32 Lymph % (Auto) 30.6 % 12/08/23 10:32 [place] % (Auto) 6.6 % 12/08/23 10:32 Eos % (Auto) 3.4 % 12/08/23 10:32 Baso % (Auto) 0.7 % 12/08/23 10:32 Neut # (Auto) 5.47 10^3/uL (1.8-7.7) 12/08/23 10:32 Lymph # (Auto) 2.9 10^3/uL (0.8-4.8) 12/08/23 10:32 [place] # (Auto) 0.6 10^3/uL (0.2-0.9) 12/08/23 10:32 Eos # (Auto) 0.3 10^3/uL (0.0-0.8) 12/08/23 10:32 Baso # (Auto) 0.1 10^3/uL (0.0-0.1) 12/08/23 10:32 Nucleated RBC % (auto) 0 % 12/08/23 10:32 Nucleated RBCs # 0.0 /100WBC 12/08/23 10:32 Sodium 139 mmol/L (136-145) 12/08/23 10:32 Potassium 4.4 mmol/L (3.5-5.1) 12/08/23 10:32 Chloride 106 mmol/L (98-107) 12/08/23 10:32 Carbon Dioxide 20 mmol/L (22-29) L 12/08/23 10:32 Anion Gap 17.4 (5-19) 12/08/23 10:32 BUN 11 mg/dL (6-20) 12/08/23 10:32 Creatinine 0.5 mg/dL (0.5-0.9) 12/08/23 10:32 GFR Calculation 136.6 mL/min (90-130) H 12/08/23 10:32 Glucose 87 mg/dL (65-115) 12/08/23 10:32 Calculated Osmolality 287 mOsm/kg (285-295) 12/08/23 10:32 Calcium 9.1 mg/dL (8.5-10.5) 12/08/23 10:32 Total Bilirubin 0.3 mg/dL (0.15-1.2) 12/08/23 10:32 AST 59 U/L (0-32) H 12/08/23 10:32 ALT 109 U/L (0-33) H 12/08/23 10:32 Alkaline Phosphatase 66 U/L (35-105) 12/08/23 10:32 Total Protein 7.2 g/dL (6.6-8.7) 12/08/23 10:32 Albumin 4.3 g/dL (3.5-5.2) 12/08/23 10:32 Globulin 2.9 g/dL (1.3-4.6) 12/08/23 10:32 Lipase 20 U/L (13-60) 12/08/23 10:32 HCG, Qual Negative (Negative) 12/08/23 10:32 Urine Color Yellow (Yellow) 12/08/23 12:07 Urine Appearance Clear (CLEAR) 12/08/23 12:07 Urine pH 5 (5-7) 12/08/23 12:07 Ur Specific [place] 1.020 (1.005-1.030) 12/08/23 12:07 Urine Protein Neg (Negative) 12/08/23 12:07 Urine Glucose (UA) Norm (Normal) 12/08/23 12:07 Urine Ketones Negative (Negative) 12/08/23 12:07 Urine Blood Neg (Negative) 12/08/23 12:07 Urine Nitrate Negative (Negative) 12/08/23 12:07 Urine Bilirubin Neg (Negative) 12/08/23 12:07 Urine Urobilinogen Norm mg/dL (Negative) 12/08/23 12:07 Ur Leukocyte Esterase Negative (Negative) 12/08/23 12:07 All radiology interpretation(s) finalized by discharge Discharge Plan Discharge Patient Disposition: Home Clinical Impression: Colitis Condition: Stable Prescriptions: New amoxicillin-pot clavulanate 875-125 mg tablet 1 tab PO BID Qty: 14 0RF hydrocodone-acetaminophen 5-325 mg tablet 1 tab PO Q6H PRN (Reason: pain) Qty: 10 0RF promethazine 25 mg tablet 25 mg PO Q6H PRN (Reason: nausea and vomiting) Qty: 20 0RF No Action progesterone micronized 200 mg capsule 200 mg PO DAILY@07 Qty: 90 5RF epinephrine 0.3 mg/0.3 mL auto-injector 0.3 mg IM Q20M PRN (Reason: anaphylaxis) Qty: 2 0RF Rx Instructions: do not exceed 3 doses per episode Discharge Orders: Discharge ED (Routine); Ordered 12/08/23 Ordered By: Jose Jacobson Referrals: Nae Coyne DO [Primary Care Provider] - Discharge Diet: Full LIquid Discharge Activity: Increase activity as tolerated Patient Instructions: Opioid Safety, Pain Management Activity Restrictions/Additional Instructions: Thank you for choosing [facility] for your healthcare needs today. It is very important that you follow up as instructed or that you return to the Emergency Department should you have concerns or if your condition changes or worsens in any way. You are seen today with complaints of abdominal pain CT showed you have a mild colitis recommend starting Augmentin 875 twice a day for 7 days. Liquid diet for the next 2 to 3 days and advance as tolerated. You can use promethazine and codeine as needed for pain. Coding Level of Care Code ED Stroboroma Operator for Ramirez Huizar
--- NOTE | 2023-12-08 12:06 | CT_ITS ---
WS: [id number] CT ABDOMEN AND PELVIS WITH CONTRAST HISTORY: abd pain TECHNIQUE: Imaging performed of the abdomen and pelvis with IV contrast. Single phase imaging of the abdomen. Coronal and sagittal reformats are submitted. All CT scans at [facility] use at [address] one of these dose optimization techniques: automated exposure control; mA and/or kV adjustment per patient size (includes targeted exams where dose is matched to clinical indication); or iterative re construction. IV CONTRAST: Omnipaque 350; 100 mL IV. Oral contrast: No DLP: 838.05 mGy.cm COMPARISON: 01/16/2021 Lower thorax: Lung bases are clear. Heart is normal size. No hiatal hernia. Liver/biliary system: Normal size with no intrahepatic dilatation. Gallbladder: Prior cholecystectomy. No bile duct dilatation. Pancreas: Normal size pancreas and pancreatic duct. No adjacent inflammation. Spleen: Normal size spleen. No mass or infarct. Adrenal glands: Normal. Right kidney: Normal. Left kidney: Cortical scar posterior kidney. No mass or obstruction. Aorta: Normal. Lymphadenopathy: None. Free fluid: None. GI tract: Normal stomach. No small bowel obstruction. No colon obstruction. No pericolonic inflammati on. Questionable mild submucosal edema in the cecum. No diverticular disease. Very minimal inflammato ry changes noted adjacent to the proximal anterior most cecum. No associated diverticula. Normal appe ndix. Abdominal wall: Unremarkable abdominal wall. No hernia. Pelvis: No free fluid or adenopathy within the pelvis. Bones: Unremarkable. CT/CT abdomen pelvis w con* [id number] IMPRESSION: 1. Very minimal submucosal edema in the cecum and proximal sigmoid. Early bell ges of a mild colitis to be considered. No diverticular disease or acute divert iculitis. 2. Normal appendix. 3. No ascites or adenopathy. 4. Prior cholecystectomy.
[2023-12-08 12:10] VITALS: BP 137/107; PULSE 87; RESP 18; O2SAT 98
[2023-12-08] MEDS: iohexol 350 mg/mL 500 mL Btl (per mL) IV (12:23)
[2023-12-08 12:32] LABS: Add Urine Microscopic? NO; Charge for UA Resulting for Rev
[2023-12-08 12:47] LABS: Bilirubin Urine Neg (Negative); Blood Urine Neg (Negative); Glucose Urine UA Norm (Normal); Ketones Urine Negative (Negative); Leukocyte Esterase Urine Negative (Negative); Nitrate Urine Negative (Negative); Protein Urine Neg (Negative); Urine Appearance Clear (CLEAR); Urine Color Yellow (Yellow); Urobilinogen Urine Norm (Negative); pH Urine 5 (5-7)
[2023-12-08 13:29] VITALS: BP 157/109; PULSE 89; RESP 16; O2SAT 97
[2023-12-08] MEDS: morphine 4 mg/mL SDV 1 mL IVP (13:35)
[2023-12-08] MEDS: ondansetron 2 mg/ML SDV 2 mL 4 MG IVP (13:35)
[2023-12-08 13:36] VITALS: BP 146/108; PULSE 92; RESP 18; O2SAT 98
[2023-12-08 14:03] VITALS: BP 143/108; PULSE 83; RESP 18; O2SAT 98
== END 2023-12-08 14:03 | disposition home or self-care (01) ==
PROVIDERS: Emergency Medicine; Emergency Provider Family Medicine; PCP Family Medicine
DX: K52.9 Noninfective gastroenteritis and colitis, unspecified (principal); F17.210 Nicotine dependence, cigarettes, uncomplicated
CPT/HCPCS: 36415; 74177; 80053; 81003; 83690; 84703; 85025; 96374; 96375; 99285; J2270; J2405; Q9967

== ENCOUNTER 2024-01-06 15:43 | Emergency (ER) | payer BC, SELFPAY ==
[2024-01-06 16:02] VITALS: BP 120/84; PULSE 77; RESP 16; TEMP 36.2; O2SAT 98
--- NOTE | 2024-01-06 16:40 | CTR_ITS ---
PROCEDURE INFORMATION: Exam: CT Chest Without Contrast; Diagnostic Exam date and time: 01/06/2024 4:54 PM Age: 38 years old Clinical indication: Chest wall pain and left-sided; Additional info: Traumatic chest pain. Left back and ribs TECHNIQUE: Imaging protocol: Diagnostic computed tomography of the chest without contrast. Radiation optimization: All CT scans at this facility use at least one of these dose optimization techniques: automated exposure control; mA and/or kV adjustment per patient size (includes targeted exams where dose is matched to clinical indication); or iterative reconstruction. COMPARISON: DX XR chest 1V [id number] 07/10/2020 12:22 PM RADIATION DOSE METRICS: Total DLP (mGy-cm): 453.51 FINDINGS: Thyroid: Grossly unremarkable. Lungs: No focal consolidation. No pneumothorax. Mild biapical emphysematous changes. Pleural spaces: No pleural effusion. Heart: No cardiomegaly. No pericardial effusion. Coronary arteries: No evidence of coronary artery calcification. Mediastinal space: Trachea and airway are grossly patent. No evidence of mediastinal hemorrhage or hematoma. Lymph nodes: No evidence of mediastinal adenopathy. Evaluation for hilar adenopathy is limited by lack of IV contrast. Vasculature: No evidence of aneurysmal dilatation of the thoracic aorta. Evaluation for acute vascular injury or thrombosis is limited by lack of IV contrast. Bones/joints: No evidence of acute fracture or aggressive osseous lesion. Soft tissues: No evidence of fluid collection or hematoma in the superficial soft tissues. Other findings: No evidence of acute abnormality in the upper abdomen. CT/CT chest [facility] [id number] IMPRESSION: 1. No evidence of acute traumatic injury to the chest. 2. Mild emphysematous changes. The presence of pulmonary emphysema on CT is an independent risk factor for lung cancer. In the absence of a history or active diagnosis of lung cancer, it is recommended that this patient with emphysema be evaluated for enrollment in a low dose CT lung cancer screening program.
[2024-01-06 16:42] LABS: Basophils # 0.1 10^3/uL (0.0-0.1); Basophils % 0.6 %; Eosinophils # 0.3 10^3/uL (0.0-0.8); Eosinophils % 2.8 %; Hematocrit 43.9 % (36-47); Lymphocytes # 2.6 10^3/uL (0.8-4.8); Lymphocytes % 25.1 %; Mean Corpuscular HGB Conc 35.3 g/dL (30-55); Mean Corpuscular Hemoglobin 34.4 pg (27-33); Mean Corpuscular Volume 97.3 fl (85-98); Mean Platelet Volume 9.2 fL (7.4-10.4); Monocytes # 0.7 10^3/uL (0.2-0.9); Monocytes % 6.2 %; Neutrophils # 6.79 10^3/uL (1.8-7.7); Neutrophils % 64.9 %; Nucleated Red Blood Cells % 0 %; Platelet Count 317 10^3/cmm (157-399); Red Blood Count 4.51 10^6/uL (3.85-5.65); Red Cell Distribution Width 12.5 % (12.1-15.1); White Blood Count 10.45 10^3/uL (3.29-11.43)
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
[2024-01-06 16:57] LABS: HCG, Serum Qual Negative (Negative)
[2024-01-06 17:05] LABS: Alanine Aminotransferase 88 U/L (0-33); Albumin Level 4.3 g/dL (3.5-5.2); Alkaline Phosphatase 63 U/L (35-105); Anion Gap 16.8 (5-19); Aspartate Amino Transferase 38 U/L (0-32); Blood Urea Nitrogen 14 mg/dL (6-20); Calcium 9.3 mg/dL (8.5-10.5); Carbon Dioxide 22 mmol/L (22-29); Chloride 104 mmol/L (98-107); Creatinine Clr Calc Pharmacy 150.3187; Glomerular Filtration Rate 136.6 mL/min (90-130); Glucose 107 mg/dL (65-115); Lipase 29 U/L (13-60); Osmolality Calculated 289 mOsm/kg (285-295); Potassium 3.8 mmol/L (3.5-5.1); Sodium 139 mmol/L (136-145); Total Bilirubin 0.2 mg/dL (0.15-1.2); Total Protein 7.3 g/dL (6.6-8.7)
[2024-01-06] MEDS: dexamethasone 10 mg/mL INJ IVP (17:37)
[2024-01-06] MEDS: ketorolac 30 mg/mL INJ IVP (17:37)
[2024-01-06] MEDS: orphenadrine 30 mg/mL Inj 2 mL 60 MG IVP (17:37)
[2024-01-06 17:46] VITALS: BP 133/100; PULSE 77; RESP 18; O2SAT 97
[2024-01-06 18:06] LABS: Charge for UA Resulting for Rev
[2024-01-06 18:08] LABS: Bilirubin Urine Negative (Negative); Blood Urine Negative (Negative); Glucose Urine UA Negative (Normal); Ketones Urine Negative (Negative); Leukocyte Esterase Urine Negative (Negative); Nitrate Urine Negative (Negative); Protein Urine Negative (Negative); Specific Gravity, Urine 1.018 (1.005-1.030); Urine Appearance Clear (CLEAR); Urine Color Yellow (Yellow); pH Urine 5.5 (5-7)
[2024-01-06 18:11] LABS: Bacteria Urine None Seen /hpf; Hyaline Casts Urine 0-4 /lpf; RBC Urine 0-2 /hpf (0-2); Squamous Epithelial Cell Urine 0-5 /hpf (0-5); WBC Urine 0-5 /hpf (0-5)
[2024-01-06 18:39] VITALS: BP 128/96; PULSE 72; RESP 16; TEMP 36.2; O2SAT 98
== END 2024-01-06 18:23 | disposition home or self-care (01) ==
PROVIDERS: Physician Assistant; Emergency Provider Emergency Medicine; PCP Family Medicine
DX: M54.6 Pain in thoracic spine (principal); T63.441A Toxic effect of venom of bees, accidental (unintentional), initial encounter; S20.212A Contusion of left front wall of thorax, initial encounter; W20.8XXA Other cause of strike by thrown, projected or falling object, initial encounter; Y93.16 Activity, rowing, canoeing, kayaking, rafting and tubing; F17.210 Nicotine dependence, cigarettes, uncomplicated
CPT/HCPCS: 36415; 71250; 80053; 81003; 81015; 83690; 84703; 85025; 96374; 96375; 99285; J1100; J1885; J2360

== ENCOUNTER 2024-06-04 10:24 | Emergency (ER) | payer BC, SELFPAY ==
[2024-06-04 10:54] VITALS: BP 132/97; PULSE 89; TEMP 36.8; O2SAT 96; BMI 30.9
--- NOTE | 2024-06-04 11:07 | XRR_ITS ---
PROCEDURE INFORMATION: Exam: XR Left Knee Exam date and time: 06/04/2024 11:08 AM Age: 38 years old Clinical indication: Injury or trauma; Fall; Blunt trauma; Knee; Left TECHNIQUE: Imaging protocol: Radiologic exam of the left knee. Views: 3 views. COMPARISON: No relevant prior studies available. FINDINGS: Bones/joints: Normal. Soft tissues: Normal. XR/XR knee LT 3V* [id number] IMPRESSION: No acute findings.
--- NOTE | 2024-06-04 11:07 | XRR_ITS ---
PROCEDURE INFORMATION: Exam: XR Left Wrist Exam date and time: 06/04/2024 11:11 AM Age: 38 years old Clinical indication: Injury or trauma; Fall; Blunt trauma (contusions or hematomas); Wrist; Left TECHNIQUE: Imaging protocol: Radiologic exam of the left wrist. Views: 3 or more views. COMPARISON: CR XR hand LT min 3V* [id number] 03/29/2023 7:07 PM FINDINGS: Bones/joints: Normal. Soft tissues: Normal. XR/XR wrist LT min 3V* [id number] IMPRESSION: No acute findings.
--- NOTE | 2024-06-04 11:07 | ED_ITS ---
HPI - Fall General: Chief Complaint: Extremity Injury, Upper Stated Complaint: FELL, WRIST , KNEE Time Seen by Provider: 06/04/24 10:28 Source: patient Mode of arrival: ambulatory Limitations: no limitations History of Present Illness: Patient is a 38-year-old female presents to ED today with a complaint of left wrist and left knee pain following a fall yesterday. Patient states she was walking and accidentally tripped over a wood pallet. She denies striking her head or LOC. No neck or back pain. She has mild abrasions to the left knee. Tetanus is up-to-date. She is ambulatory here without difficulty or assistance. complaint: fall Onset (ago): day(s) Fall from: standing Fall witnessed: no Place fall occurred: home Loss of consciousness: None Prolonged down time: no Symptoms prior to fall: none Context: tripped/slipped Location of injury - extremities: Left: knee Associated symptoms-after fall: Reports no associated symptoms; Denies difficulty walking, headache(s) or neck pain Related Data Home Medications Medication Instructions Recorded Confirmed ibuprofen 200 mg tablet 800 mg PO Q6H PRN Pain 06/04/24 06/04/24 progesterone micronized 200 mg 200 mg PO BEDTIME 06/04/24 06/04/24 capsule Previous Rx's Medication Instructions Recorded epinephrine 0.3 mg/0.3 mL 0.3 mg (0.3 mL) IM Q20M PRN 03/17/22 injection, auto-injector anaphylaxis #2 ea estradiol 0.01% (0.1 mg/gram) 1 g vaginal .COMPLEX #42.5 grams 04/18/24 vaginal cream (Estrace) estradiol 1 mg tablet 1 mg PO DAILY #90 tabs 04/18/24 Allergies Allergy/AdvReac Type Severity Reaction Status Date / Time Sulfa (Sulfonamide Allergy difficulty Verified 06/04/24 11:00 Antibiotics) breathing Review of Systems Musc: Reports: joint pain (L wrist, L knee) and joint swelling (L knee); Denies: neck pain or back pain Skin/Breast: Reports: other (knee abrasion) Neuro: Denies: headache(s), numbness in extremities, weakness in extremities, sensory changes or difficulty walking [facility] ED PFSH: Medical History Surgical menopause, symptomatic 03/13/2019: Laparoscopic BSO due to endometriomas Ovarian endometriosis 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 Found to have bilateral endometriomas at time of laparoscopy on 03/13/2019 resulting in BSO being performed. Surgical History S/P bilateral salpingo-oophorectomy (03/13/19) Laparoscopic BSO with lysis of omental and ovarian adhesions. Diagnosis: Bilateral endometriomas. Performed by Dr. Steve Davis at [facility] in [place], [place]. History of cholecystectomy (09/13/09) Laparoscopic. Performed by Dr. Briones at [facility] in [place], [place]. Hx of section (07/24/08) Bleeding placenta previa. J incision of the uterus. Performed by Dr. Steve Davis at [facility] in [place], [place] History of tubal ligation (05/13/10) Performed at time of section. Performed by Dr. Perez at [facility] at [facility] in [place], [place]. Previous section (05/13/10) Repeat section with BTL. Performed by Dr. Perez at [facility] in [place], [place]. Status post surgery (01/29/14) Excision of incisional endometriosis--She had an approximately 4 cm mass involving the skin, subcutaneous tissue and a small area of the fascia at the right corner of her Pfannenstiel incision.? Performed by Dr. Steve Davis at [facility] in [place], [place]. Family History Mother Hypertension Hyperlipidemia Grandmother Hypertension Maternal Breast cancer Maternal Mother Heart disease Denies family history of Diabetes CAD (coronary artery disease) Clotting disorder Chronic kidney disease (CKD) Bleeding disorder Thyroid disease Stroke Social History Smoking and tobacco/nicotine status: current every day tobacco/nicotine user Physical Exam Const: COMMON NORMALS: no acute distress, average body habitus, patient oriented x3, no limitations, healthy appearing, alert and well nourished HENMT: COMMON NORMALS: normocephalic and atraumatic HEAD & SCALP: normal to inspection, normocephalic and atraumatic Neck/C-Spine: COMMON NORMALS: full ROM CERVICAL SPINE: No Cervical spine tenderness Back/Pelvis: COMMON NORMALS: thoracic and lumbar spine normal to inspection Extremity: COMMON NORMALS: full ROM, capillary refill normal, no clubbing, cyanosis or edema, no calf tenderness and no pedal edema GENERAL: Yes normal exam except as noted LEFT UPPER EXTREMITY: Yes wrist (mild discomfort L wrist) Left wrist: Yes inspection (normal gross inspection), Yes ROM (normal) and Yes neurovascular exam (normal) LEFT LOWER EXTREMITY: Yes knee joint (mild abrasion/edema anterior knee) Left knee: Yes ROM (normal) and Yes neurovascular exam (normal ) Neuro: COMMON NORMALS: patient oriented x3, moves all extremities, no focal motor deficits, no sensory deficits noted and gait normal SENSORIUM/ORIENTATION: Yes alert Skin: TRAUMA: abrasion Course Vital Signs: Vital signs: Vital Signs Temperature 98.3 F 06/04/24 10:54 Pulse Rate 89 06/04/24 10:54 Blood Pressure 132/97 06/04/24 10:54 Pulse Oximetry 96 06/04/24 10:54 Oxygen Delivery Me thod Room Air 06/04/24 10:54 MDM - Fall Medical Decision Making XR left wrist and knee showing no acute findings. Discussed conservative therapies and she can follow up with PCP in 1-2 weeks for continued pain. Lab Data Radiology Impressions Knee X-Ray 06/04/24 11:07 IMPRESSION: No acute findings. Wrist X-Ray 06/04/24 11:07 IMPRESSION: No acute findings. All radiology interpretation(s) finalized by discharge Discharge Plan Discharge Patient Disposition: Home Clinical Impression: Left wrist sprain Qualifiers: Encounter type: initial encounter Qualified Code(s): S63.502A - Unspecified sprain of left wrist, initial encounter Contusion of left knee Qualifiers: Encounter type: initial encounter Qualified Code(s): S80.02XA - Contusion of left knee, initial encounter Condition: Stable Prescriptions: No Action estradiol 1 mg tablet 1 mg PO DAILY Qty: 90 3RF Rx Instructions: take in conjunction with prometrium estradiol [Estrace] 0.01 % (0.1 mg/gram) cream 1 g vaginal .COMPLEX Qty: 42.5 3RF Rx Instructions: insert 1 gram at hs for 14 nights then 2-3 times weekly-- space out doses epinephrine 0.3 mg/0.3 mL auto-injector 0.3 mg IM Q20M PRN (Reason: anaphylaxis) Qty: 2 0RF Rx Instructions: do not exceed 3 doses per episode progesterone micronized 200 mg capsule 200 mg PO BEDTIME Rx Instructions: take in conjunction with estrogen ibuprofen 200 mg Tablet 800 mg PO Q6H PRN (Reason: Pain) Discharge Orders: Discharge ED (Routine); Ordered 06/04/24 Ordered By: Cherelle Gamble Referrals: Nae Coyne DO [Primary Care Provider] - Patient Instructions: Contusion, Wrist Sprain (ED) Activity Restrictions/Additional Instructions: As we discussed, you may ice and elevate the extremity still with swelling. You may take uqzd-drp-[id number] medications such as Tylenol and/or Ibuprofen to help with discomfort. Please follow-up with primary care in 1 to 2 weeks if symptoms do not seem to be improving. Coding Level of Care Code ED [employer] Appellate Law Clerk for Ramirez Huizar
[2024-06-04 12:05] VITALS: BP 145/97; PULSE 96; O2SAT 96
== END 2024-06-04 12:06 | disposition home or self-care (01) ==
PROVIDERS: Emergency Provider Physician Assistant; PCP Family Medicine
DX: S63.502A Unspecified sprain of left wrist, initial encounter (principal); S80.02XA Contusion of left knee, initial encounter; Z72.0 Tobacco use; W19.XXXA Unspecified fall, initial encounter
CPT/HCPCS: 73110; 73562; 99284

== ENCOUNTER 2024-11-07 11:01 | Emergency (ER) | payer BC, SELFPAY ==
--- NOTE | 2024-11-07 11:02 | XR_ITS ---
WS: [id number] Exam: XR knee LT 3V* [id number] Date/Time of Exam: 11/07/2024 11:02 AM Reason For Exam: injury Comparison 06/04/2024. No fracture. The joints are preserved. No joint effusion or soft tissue abnormality. XR/XR knee LT 3V* [id number] IMPRESSION: 1. Negative LEFT knee.
--- OUTSIDE RECORDS SUMMARY | 2024-11-07 11:46 | XMS_ITS | Data Portability ---
Author Organization [facility] Nichoel [facility] Address [address] [place] [address] Assessment No assessment recorded. Plan of Treatment Reminders Order Date Submit Date Provider Last Modified By Organization Details Last Modified Time Details Appointments None recorded. Lab SARS CoV 2 RNA, QL, nasopharynx 2022 023 swilkenin g4 [facility] ([facility]), [address] [place], [address], 3 10:54:30 Referral None recorded. Procedures None recorded. Surgeries None recorded. Imaging None recorded. Medication Orders ondansetron 4 mg disintegrat ing tablet 2022 023 [facility] [place], [address] [place], [address], 3 11:01:45 Patient TargetsNo targets recorded. Patient InstructionsNo instructions recorded. Reason for Referral None Reported. Results Created Date Observation Date Name Description Value Unit Range Abnormal Flag Note LastModifiedBy Organization Detail LastModifiedTime 04/27/20 23 04/27/2023 SARS CoV 2 RNA, QL, nasop haryn x COVID negati ve Not Available [facility] ([facility]) [address] [place], [address], 04/27/2023 10:09:37 Result Notes None recorded. Problems Name Problem SNOMED Code Status Onset Date Resolution Date Notes Provider Name and Address Organization Details Recorded Time section Active 021 Section; 07/2008 for complete previa; 1 4:05PM by Steve Livingston, Office Visit; Promoted; acuity set as *; Not Available [facility] 3 03:15:41 Problem Notes None recorded. Medical Equipment None Reported. Allergies Allergen ID Allergen Name Allergen Category Reaction Reaction Severity Criticality Documentation Date Start Date Code Code System Note Provider Name and Address Organization Details Recorded Time 62255 Substance with sulfonami de structure and antibacte rial mechanism of action (substanc e) medicatio n edema Not available Not available 12/11/2022 07235 8003 SNOMED React ion: Edema ; Comme nt: Recor ded 04/10 4:05P M by Trista velásquez, Offic e Visit ; Shantelle gee; Jeanne talavera ce: *; ; Not Available [facility] 3 02:25:53 Medications Name Sig Start Date Stop Date Status Note LastModified by Organization Details LastModified Time esterified estrogens- methyltest osterone 0.625 mg-1.25 mg tablet TAKE 1 TABLET BY MOUTH EVERY DAY active Not Available Not Available No t Available hydrocodon e 5 mg-acetami nophen 325 mg tablet active Not Available Not Available No t Available hyoscyamin e 0.125 mg sublingual tablet every eight hours, as needed active 0; Recorded 1 4:05PM by Steve Livingston, Office Visit; Not Available Not Available Not Available progestero ne micronized 200 mg capsule take 1 capsule BY MOUTH EVERY DAY AT 7AM active Not Available Not Available No t Available ondansetro n 4 mg disintegra ting tablet Place 1 tablet 3 times a day by transling ual route as needed for 10 days. active Not Available Not Available No t Available Sprintec (28) 0.25 mg-0.035 mg tablet at bedtime 2011 active Recorded 1 4:05PM by Steve Livingston, Office Visit; Refill Quantity: 30; Tablet; Not Available Not Available Not Available ondansetro n HCl every six hours, as needed active 0; Recorded 1 4:05PM by Steve Livingston, Office Visit; Not Available Not Available Not Available Vitals Date Recorded Body height Body mass index (BMI) Body weight Oxygen saturation Oxygen saturation in Arterial blood by Pulse oximetry Heart rate Body temperature Provider Name and Address Organization Details Last Updated DateTime 3 162.56 cm 28.5 kg/m2 76734.3 3 g 97 % 97 % 75 /min 98.1 [degF] [facility] 3 10:08:16 Social History None recorded. Functional Status None recorded. Mental Status None recorded. Family History Nothing Reported. Medical History No medical history recorded. Gynecological HistoryNo gynecological history recorded. Obstetrics History GPAL:G 0 P 0 0 0 0 Immunizations Vaccine Type Date Status Note Provider Nam e and Address Organization Details Recorded Time COVID-19, mRNA, LNP-S, PF, 100 mcg/0.5mL dose or 50 mcg/0.25mL dose 12/14/2020 completed [facility] 04/27/2023 10:08:20 COVID-19, mRNA, LNP-S, PF, 100 mcg/0.5mL dose or 50 mcg/0.25mL dose 01/14/2021 completed [facility] 04/27/2023 10:08:20 Past Encounters Encounter ID Performer Location Encounter Start Date Encounter Closed Date Diagnosis/Indication Diagnosis SNOMED-CT Code Diagnosis ICD10 Code Diagnosis Note [id number] JOSE COOK [facility] ([facility]) [address] [place] [phone] 04/27/2023 09:46:11 04/27/2023 11:54:20 Cough 59980352 R05.9 Negative COVID test today. Viral gastroenteritis 11 [id number] A08.4 Discussed with patient that this is viral and will need to run its course. Continue to push fluids and eat foods as tolerated. If fever occurs, tylenol and ibuprofen are okay. Can start ondansetro n PRN. If worsening condition or no improvemen t in 7-10 days, return for further evaluation . Patient verbalizes understand ing. Health Concerns Section Related Observation LastModified by Organization Detai ls LastModified Time None Recorded Concern Status LastModified by Organization Details LastModified Time None Recorded Advance Directives Directive None Recorded Payers Insurance Date Sequence Insurance Name Policy Number Policy Marinelli Covered Member ID Marinelli Member ID Guarantor Name 05/03/2023 1 [employer] [id number] Sophia Thomas [id number] Sophia Thomas Notes Date Note Type Note Provider Name and Address Organization Details Recorded Time 04/27/2023 text/html CoughReported bypatient.Quality:d ry Severity:worsening; moderate Duration:constant; acute (<3 weeks) Onset/Timing:sudden Associated Symptoms:no fever; no chills;nasal discharge;muscle pain;tiredness; headache, vomiting, nausea, Patient is a 37 year old female who presents to the walk in clinic today for sinus pressure, abdominal pain, nausea and vomiting. Patient reports symptoms started this morning. Denies fever. Not tolerating any foods or liquids. CARLEE BEY, MARCELLA-C [address] [place] [address], [phone], [facility], Charlie 04/27/2023 11:01:00 OBGyn Episode No OBEpisode recorded.
[2024-11-07 11:48] VITALS: BP 137/90; PULSE 97; RESP 16; TEMP 36.7; O2SAT 97
--- NOTE | 2024-11-07 12:42 | W.ED.EXTPRO ---
HPI - Extremity Problem General: Chief complaint: Extremity Injury, Lower Stated complaint: L knee pain Time Seen by Provider: 11/07/24 12:31 Source: patient Mode of arrival: ambulatory Limitations: no limitations History of Present Illness: 39-year-old female states that she had stepped off a ladder yesterday and twisted her left knee states since then she been having pain left knee not been able to bear any weight. She rates her pain a 6 out of 10 is improved with rest she denies any other injuries denies any previous injuries to that knee. Associated symptoms: Deny chest pain, fever(s) or rash Related Data Home Medications ?Medication ?Instructions ?Recorded ?Confirmed ibuprofen 200 mg tablet 800 mg PO Q6H PRN Pain 06/04/24 06/04/24 progesterone micronized 200 mg 200 mg PO BEDTIME 06/04/24 06/04/24 capsule Previous Rx's ?Medication ?Instructions ?Recorded epinephrine 0.3 mg/0.3 mL 0.3 mg (0.3 mL) IM Q20M PRN 03/17/22 injection, auto-injector anaphylaxis #2 ea estradiol 0.01% (0.1 mg/gram) 1 g vaginal .COMPLEX #42.5 grams 04/18/24 vaginal cream (Estrace) estradiol 1 mg tablet 1 mg PO DAILY #90 tabs 04/18/24 naproxen 500 mg tablet (Naprosyn) 500 mg PO BID PRN pain #20 tabs 11/07/24 Allergies Allergy/AdvReac Type Severity Reaction Status Date / Time Sulfa (Sulfonamide Allergy difficulty Verified 11/07/24 11:50 Antibiotics) breathing Review of Systems Const: Denies: fever(s), chills, body aches or change in appetite ENMT: Denies: throat pain or dental pain Card: Denies: chest pain Resp: Denies: dyspnea GI: Denies: abdominal pain, nausea, vomiting or diarrhea Musc: Reports: extremity pain; Denies: neck pain or back pain Skin/Breast: Denies: rash Neuro: Denies: headache(s) PFSH ED PFSH: Medical History Surgical menopause, symptomatic 03/13/2019: Laparoscopic BSO due to endometriomas Ovarian endometriosis 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 Found to have bilateral endometriomas at time of laparoscopy on 03/13/2019 resulting in BSO being performed. Surgical History S/P bilateral salpingo-oophorectomy (03/13/19) Laparoscopic BSO with lysis of omental and ovarian adhesions. Diagnosis: Bilateral endometriomas. Performed by Dr. Steve Davis at [facility] in [place], [place]. History of cholecystectomy (09/13/09) Laparoscopic. Performed by Dr. Briones at [facility] [place] [facility] in [place], [place]. Hx of section (07/24/08) Bleeding placenta previa. J incision of the uterus. Performed by Dr. Steve Davis at [facility] [place] [facility] in [place], [place] History of tubal ligation (05/13/10) Performed at time of section. Performed by Dr. Perez at [facility] at [facility] [place] [facility] in [place], [place]. Previous section (05/13/10) Repeat section with BTL. Performed by Dr. Perez at [facility] [place] [facility] in [place], [place]. Status post surgery (01/29/14) Excision of incisional endometriosis--She had an approximately 4 cm mass involving the skin, subcutaneous tissue and a small area of the fascia at the right corner of her Pfannenstiel incision.? Performed by Dr. Steve Davis at [facility] [place] [facility] in [place], [place]. Family History Mother Hypertension Hyperlipidemia Grandmother Hypertension Maternal Breast cancer Maternal Mother Heart disease Denies family history of Diabetes CAD (coronary artery disease) Clotting disorder Chronic kidney disease (CKD) Bleeding disorder Thyroid disease Stroke Social History Smoking and tobacco/nicotine status: current every day tobacco/nicotine user Physical Exam Const: COMMON NORMALS: no acute distress, patient oriented x3 and healthy appearing HENMT: COMMON NORMALS: normocephalic and atraumatic HEAD & SCALP: normocephalic and atraumatic Eye: COMMON NORMALS: conjunctivae normal CONJUNCTIVA: Yes conjunctivae normal Neck/C-Spine: COMMON NORMALS: full ROM and supple Chest: COMMONS NORMALS: normal inspection of the chest Resp: COMMON NORMALS: normal respiratory effort Cardio: COMMON NORMALS: regular rate RATE: regular rate Extremity: NARRATIVE EXTREMITY EXAM: Some tenderness noted left knee no obvious deformity distal pulses sensation intact Neuro: COMMON NORMALS: patient oriented x3, moves all extremities and no focal motor deficits Psych: COMMON NORMALS: mental status grossly normal, Normal thought process present and cooperative THOUGHT PROCESS: Normal thought process present Skin: COMMON NORMALS: no rashes or lesions noted and no wounds GENERAL SKIN EXAM: no rashes or lesions noted Course Vital Signs: Vital signs: Vital Signs Temperature 98.0 F 11/07/24 11:48 Pulse Rate 97 11/07/24 11:48 Respiratory Rate 16 11/07/24 11:48 Blood Pressure 137/90 11/07/24 11:48 Pulse Oximetry 97 11/07/24 11:48 Oxygen Delivery Me thod Room Air 11/07/24 11:48 MDM - Extremity (Nontraumatic) Medical Decision Making Patient presents here with left knee sprain x-ray shows no fracture will place in immobilizer she is weight-bear as tolerated we will get her follow-up orthopedics. Lab Data Radiology Impressions Knee X-Ray 11/07/24 11:02 IMPRESSION: 1. Negative LEFT knee. All radiology interpretation(s) finalized by discharge Discharge Plan Discharge Patient Disposition: Home Clinical Impression: Left knee sprain Condition: Stable Prescriptions: New naproxen [Naprosyn] 500 mg tablet 500 mg PO BID PRN (Reason: pain) Qty: 20 0RF No Action estradiol 1 mg tablet 1 mg PO DAILY Qty: 90 3RF Rx Instructions: take in conjunction with prometrium estradiol [Estrace] 0.01 % (0.1 mg/gram) cream 1 g vaginal .COMPLEX Qty: 42.5 3RF Rx Instructions: insert 1 gram at hs for 14 nights then 2-3 times weekly-- space out doses epinephrine 0.3 mg/0.3 mL auto-injector 0.3 mg IM Q20M PRN (Reason: anaphylaxis) Qty: 2 0RF Rx Instructions: do not exceed 3 doses per episode progesterone micronized 200 mg capsule 200 mg PO BEDTIME Rx Instructions: take in conjunction with estrogen ibuprofen 200 mg Tablet 800 mg PO Q6H PRN (Reason: Pain) Discharge Orders: Discharge ED (Routine); Ordered 11/07/24 Ordered By: Shakira Aquino Referrals: Carlos Roman DO [Physician, Orthopedics] - 4-7 days Discharge Diet: Advance as tolerated Discharge Activity: Resume usual activity Patient Instructions: Knee Sprain (ED) Print Language: Romanian Coding Level of Care Code ED Medical Practice Administrator for Ramirez Huizar
--- NOTE | 2024-11-08 08:24 | DCPLANNER ---
messaged ortho for er f/u
== END 2024-11-07 13:07 | disposition home or self-care (01) ==
PROVIDERS: Emergency Provider Emergency Medicine
DX: S83.92XA Sprain of unspecified site of left knee, initial encounter (principal); Z72.0 Tobacco use; X58.XXXA Exposure to other specified factors, initial encounter
CPT/HCPCS: 29530; 73562; 99283; E0114; L1830

== ENCOUNTER → 2024-11-23 09:25 | Outpatient (BNVA) | payer BC, SELFPAY | PROVIDERS: Visit Provider Physician Assistant | DX: M23.305 Other meniscus derangements, unspecified medial meniscus, unspecified knee (principal); S89.92XA Unspecified injury of left lower leg, initial encounter; W19.XXXA Unspecified fall, initial encounter | CPT/HCPCS: 73560; 73565 ==

== ENCOUNTER 2025-01-21 10:51 | Emergency (ER) | payer BC, SELFPAY ==
[2025-01-21 10:54] VITALS: BP 134/64; PULSE 84; TEMP 36.4; O2SAT 98
--- NOTE | 2025-01-21 12:12 | W.ED.FALL ---
HPI - Fall General: Chief Complaint: Fall Stated Complaint: Fell down a hellen hill on 9-7 Time Seen by Provider: 01/21/25 10:55 Source: patient Mode of arrival: wheelchair Limitations: no limitations History of Present Illness: Patient is a 39-year-old female presents to ED today for evaluation following a fall. Patient states she was fishing yesterday and accidentally tripped and fell and rolled down a [place]en hill. She is complaining of left rib and left knee pain. She has injured the left knee several times previously. She denies striking her head or LOC. No back pain or neck pain. She is not complaining of any shortness of breath or difficulty breathing. She feels like the pain in her ribs is worse with movement. MD complaint: fall Onset (ago): day(s) (yesterday) Fall from: standing Fall witnessed: yes, by bystander Place fall occurred: other (outdoors/fishing) Loss of consciousness: None Prolonged down time: no Symptoms prior to fall: none Context: tripped/slipped Location of injury: chest Location of injury - extremities: Left: knee Severity: moderate Associated symptoms-after fall: Reports no associated symptoms and chest pain (L rib pain); Denies abdominal pain, headache(s), hematuria, lightheadedness or neck pain Related Data Home Medications ?Medication ?Instructions ?Recorded ?Confirmed ibuprofen 200 mg tablet 800 mg PO Q6H PRN Pain 06/04/24 11/23/24 progesterone micronized 200 mg 200 mg PO BEDTIME 06/04/24 11/23/24 capsule Previous Rx's ?Medication ?Instructions ?Recorded epinephrine 0.3 mg/0.3 mL 0.3 mg (0.3 mL) IM Q20M PRN 03/17/22 injection, auto-injector anaphylaxis #2 ea estradiol 0.01% (0.1 mg/gram) 1 g vaginal .COMPLEX #42.5 grams 04/18/24 vaginal cream (Estrace) estradiol 1 mg tablet 1 mg PO DAILY #90 tabs 04/18/24 naproxen 500 mg tablet (Naprosyn) 500 mg PO BID PRN pain #20 tabs 11/07/24 left knee economy brace #1 ea 11/23/24 Allergies Allergy/AdvReac Type Severity Reaction Status Date / Time Sulfa (Sulfonamide Allergy difficulty Verified 01/21/25 10:58 Antibiotics) breathing Review of Systems Eyes: Denies: change in vision, blurry vision, photophobia, eye discharge, floaters or seeing flashes ENMT: Denies: throat pain, odynophagia, ear or mastoid pain, ear discharge, nasal discharge, epistaxis or sinus pain Card: Reports: chest pain (L rib pain); Denies: palpitations, lightheadedness, syncope, pre-syncope, dyspnea on exertion or orthopnea Resp: Denies: dyspnea or pain on inspiration GI: Denies: abdominal pain : Denies: flank pain or hematuria Musc: Reports: joint pain (L knee); Denies: neck pain, back pain, extremity pain, extremity swelling, joint swelling, joint redness or joint warmth Skin/Breast: Denies: rash Neuro: Denies: headache(s), numbness in extremities, weakness in extremities, sensory changes or dizziness PFSH ED PFSH: Medical History Surgical menopause, symptomatic 03/13/2019: Laparoscopic BSO due to endometriomas Ovarian endometriosis 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 Found to have bilateral endometriomas at time of laparoscopy on 03/13/2019 resulting in BSO being performed. Surgical History S/P bilateral salpingo-oophorectomy (03/13/19) Laparoscopic BSO with lysis of omental and ovarian adhesions. Diagnosis: Bilateral endometriomas. Performed by Dr. Steve Davis at [facility] in [place], [place]. History of cholecystectomy (09/13/09) Laparoscopic. Performed by Dr. Briones at [facility] [place] [facility] in [place], [place]. Hx of section (07/24/08) Bleeding placenta previa. J incision of the uterus. Performed by Dr. Steve Davis at [facility] [place] [facility] in [place], [place] History of tubal ligation (05/13/10) Performed at time of section. Performed by Dr. Perez at performed at [facility] [place] [facility] in [place], [place]. Previous section (05/13/10) Repeat section with BTL. Performed by Dr. Perez at [facility] [place] [facility] in [place], [place]. Status post surgery (01/29/14) Excision of incisional endometriosis--She had an approximately 4 cm mass involving the skin, subcutaneous tissue and a small area of the fascia at the right corner of her Pfannenstiel incision.? Performed by Dr. Steve Davis at [facility] [place] [facility] in [place], [place]. Family History Mother Hypertension Hyperlipidemia Grandmother Hypertension Maternal Breast cancer Maternal Mother Heart disease Denies family history of Diabetes CAD (coronary artery disease) Clotting disorder Chronic kidney disease (CKD) Bleeding disorder Thyroid disease Stroke Social History Smoking and tobacco/nicotine status: current every day tobacco/nicotine user Physical Exam Const: COMMON NORMALS: no acute distress, average body habitus, patient oriented x3, no limitations, healthy appearing, alert and well nourished GENERAL APPEARANCE: cooperative ORIENTATION/CONSCIOUSNESS: Yes awake, Yes oriented to person, Yes oriented to place and Yes oriented to time HENMT: COMMON NORMALS: normocephalic, atraumatic and TM's normal bilaterally HEAD & SCALP: normal to inspection, normocephalic and atraumatic; no Estevez's sign, no hematoma and no raccoon eyes FACE & SINUS: normal facial exam TYMPANIC MEMBRANE: TM's normal bilaterally MOUTH: other (no intraoral injuries noted) Eye: COMMON NORMALS: Equal, round and reactive pupils present and EOMs intact bilaterally GENERAL EYE: appearance normal, both eyes and all related structures and normal light reflex PUPIL: Yes Equal, round and reactive pupils present DIRECT OPHTHALMOSCOPY: Yes normal light reflex Neck/C-Spine: COMMON NORMALS: full ROM GENERAL: Yes normal visual inspection CERVICAL SPINE: Yes cervical ROM normal, No pain with cervical ROM, No Cervical spine tenderness, No step off deformity and No Paracervical muscle tenderness Chest: COMMONS NORMALS: normal inspection of the chest OTHER: TTP L posteriolateral rib pain; no crepitus; normal lung sounds Resp: COMMON NORMALS: normal respiratory effort and clear to auscultation bilaterally AUSCULTATION: clear to auscultation bilaterally Cardio: COMMON NORMALS: regular rate and regular rhythm RATE: regular rate RHYTHM: regular rhythm GI: COMMON NORMALS: Normal to inspection, nondistended, normoactive bowel sounds present, Soft to palpation, non-tender, No hepatosplenomegaly present and no masses INSPECTION: Yes normal to inspection and No abdominal wall ecchymosis AUSCULTATION: Yes normoactive bowel sounds PALPATION: Yes Soft to palpation and Yes No hepatosplenomegaly present Back/Pelvis: COMMON NORMALS: thoracic and lumbar spine normal to inspection, no thoracic nor lumbar tenderness and thoraco-lumbar ROM normal Extremity: COMMON NORMALS: normal to inspection, full ROM and capillary refill normal GENERAL: Yes normal exam except as noted LEFT LOWER EXTREMITY: Yes knee joint (anterior abrasion; mild edema) Left knee: Yes ROM (slightly limited due to discomfort) and Yes neurovascular exam (normal) Neuro: MELANY COMA SCALE: document GCS findings [place] coma scale eye opening: Spontaneous Melany coma scale verbal response: Orientated Melany coma scale motor response: Obey commands Melany coma scale total score: 15 COMMON NORMALS: patient oriented x3, CN's II-XII intact bilaterally, moves all extremities, no focal motor deficits and no sensory deficits noted SENSORIUM/ORIENTATION: Yes alert, Yes oriented to person, Yes oriented to place and Yes oriented to time SPEECH: speech normal GAIT: Yes Normal gait present Skin: COMMON NORMALS: no rashes or lesions noted GENERAL SKIN EXAM: no rashes or lesions noted TRAUMA: no lacerations or abrasions Course Vital Signs: Vital signs: Vital Signs Temperature 97.5 F L 01/21/25 10:54 Pulse Rate 47 L 01/21/25 12:16 Blood Pressure 132/101 01/21/25 12:16 Pulse Oximetry 98 01/21/25 12:16 Oxygen Delivery Me thod Room Air 01/21/25 12:16 MDM - Fall Medical Decision Making XR imaging of her left ribs and left knee obtained today and are unremarkable. Discussed conservative therapies at home. She will follow-up with primary care in 1 to 2 weeks if symptoms are not improving. She states she does have a knee brace she can wear. She declined crutches. Medical Records I reviewed the patient's medical records. Lab Data Radiology Impressions Knee X-Ray 01/21/25 12:32 Impression: Negative left knee. Ribs X-Ray 01/21/25 12:32 Impression: Negative chest with left rib detail. All radiology interpretation(s) finalized by discharge Discharge Plan Discharge Patient Disposition: Home Clinical Impression: Contusion of rib on left side Qualifiers: Encounter type: initial encounter Qualified Code(s): S29.8XXA - Other specified injuries of thorax, initial encounter Injury of knee, left Qualifiers: Encounter type: initial encounter Qualified Code(s): S89.92XA - Unspecified injury of left lower leg, initial encounter Condition: Stable Prescriptions: No Action (DME) left knee economy brace See Rx Instructions .Route .MEDSUPPLY Qty: 1 0RF Rx Instructions: As directed estradiol 1 mg tablet 1 mg PO DAILY Qty: 90 3RF Rx Instructions: take in conjunction with prometrium estradiol [Estrace] 0.01 % (0.1 mg/gram) cream 1 g vaginal .COMPLEX Qty: 42.5 3RF Rx Instructions: insert 1 gram at hs for 14 nights then 2-3 times weekly-- space out doses epinephrine 0.3 mg/0.3 mL auto-injector 0.3 mg IM Q20M PRN (Reason: anaphylaxis) Qty: 2 0RF Rx Instructions: do not exceed 3 doses per episode progesterone micronized 200 mg capsule 200 mg PO BEDTIME Rx Instructions: take in conjunction with estrogen ibuprofen 200 mg Tablet 800 mg PO Q6H PRN (Reason: Pain) naproxen [Naprosyn] 500 mg tablet 500 mg PO BID PRN (Reason: pain) Qty: 20 0RF Discharge Orders: Discharge ED (Routine); Ordered 01/21/25 Ordered By: Cherelle Gamble Patient Instructions: Patient Portal & Bruce Instructions Activity Restrictions/Additional Instructions: As we discussed, x-ray imaging here was negative. Please follow-up with primary care in 1 to 2 weeks if symptoms do not seem to be improving. Stand Alone Forms: Work/School Release Print Language: Stateless Coding Level of Care Code ED Technical Service Engineer for Ramirez Huizar
[2025-01-21 12:16] VITALS: BP 132/101; PULSE 47; O2SAT 98
--- NOTE | 2025-01-21 12:32 | XR_ITS ---
WS: [id number] Chest with left rib detail, 4 views, 01/21/2025 Clinical Data: injury/fall Comparison: Portable chest, 07/10/2020 Findings: The lungs show no nodules, masses, or effusions. The heart is normal. No pneumonia or pneumothorax is seen. The ribs are intact. No rib fractures seen. No subcutaneous emphysema is present. XR/XR ribs LT mn 3V w CXR1V [id number] Impression: Negative chest with left rib detail.
--- NOTE | 2025-01-21 12:32 | XR_ITS ---
WS: [id number] Left knee, 3 views, 01/21/2025 Clinical Data: injury Comparison: Left knee, AP both knees, 11/23/2024 Findings: No fractures or dislocations are seen. The joint spaces are normal. The patella is intact. The soft tissues are unremarkable. XR/XR knee LT 3V* [id number] Impression: Negative left knee.
[2025-01-21 14:04] VITALS: BP 122/90; PULSE 90; RESP 16; O2SAT 93
== END 2025-01-21 14:04 | disposition home or self-care (01) ==
PROVIDERS: Emergency Provider Physician Assistant
DX: S29.8XXA Other specified injuries of thorax, initial encounter (principal); S89.92XA Unspecified injury of left lower leg, initial encounter; Z72.0 Tobacco use; W17.81XA Fall down embankment (hill), initial encounter
CPT/HCPCS: 71101; 73562; 96372; 99284; J1885

== ENCOUNTER 2025-04-11 20:19 | Emergency (ER) | payer BC, SELFPAY ==
[2025-04-11 20:21] VITALS: BP 165/117; PULSE 86; RESP 16; TEMP 36.4; O2SAT 100; BMI 27.4
--- OUTSIDE RECORDS SUMMARY | 2025-04-11 20:23 | XMS_ITS | Data Portability ---
Author Organization [facility] Address [address] [place] [address] Assessment No assessment recorded. Plan of Treatment Reminders Order Date Submit Date Provider Last Modified By Organization Details Last Modified Time Details Appointments None recorded. Lab SARS CoV 2 RNA, QL, nasopharynx 2022 023 [email or web address] [facility] ([facility] [address] [place], [address], 3 10:54:30 Referral None recorded. Procedures None recorded. Surgeries None recorded. Imaging None recorded. Medication Orders ondansetron 4 mg disintegrat ing tablet 2022 023 [facility], [address] [place], [address], 3 11:01:45 Patient TargetsNo targets recorded. Patient InstructionsNo instructions recorded. Reason for Referral None Reported. Results Created Date Observation Date Name Description Value Unit Range Abnormal Flag Note LastModifiedBy Organization Detail LastModifiedTime 04/27/20 23 04/27/2023 SARS CoV 2 RNA, QL, nasop haryn x COVID negati ve Not Available [facility] ([facility]) [address] [place], [address], 04/27/2023 10:09:37 Result Notes None recorded. Problems Name Problem SNOMED Code Status Onset Date Resolution Date Notes Provider Name and Address Organization Details Recorded Time section Active 021 Section; 07/2008 for complete previa; 1 4:05PM by Steve Livingston, Office Visit; Promoted; acuity set as *; Not Available [facility] 3 03:15:41 Problem Notes None recorded. Medical Equipment None Reported. Allergies Allergen ID Allergen Name Allergen Category Reaction Reaction Severity Criticality Documentation Date Start Date Code Code System Note Provider Name and Address Organization Details Recorded Time 70935 Substance with sulfonami de structure and antibacte rial mechanism of action (substanc e) medicatio n edema Not available Not available 12/11/2022 21020 8003 SNOMED React ion: Edema ; Comme nt: Recor ded 04/10 4:05P M by Trista velásquez, Offic e Visit ; Shantelle gee; Jeanne talavera ce: *; ; Not Available [facility] 3 02:25:53 Medications Name Sig Start Date [...] mass index (BMI) Body weight Oxygen saturation Heart rate Body temperature Provider Name and Address Organization Details Last Updated DateTime 3 162.56 cm 28.5 kg/m2 89231.3 3 g 97 % 75 /min 98.1 [degF] [facility] 3 10:08:16 Social History None recorded. [...] dose or 50 mcg/0.25mL dose 12/14/2020 completed [facility] 04/27/2023 10:08:20 COVID-19, mRNA, LNP-S, PF, 100 mcg/0.5mL dose or 50 mcg/0.25mL dose 01/14/2021 completed [facility] 04/27/2023 10:08:20 Past Encounters Encounter ID Performer Location Encounter Start Date Encounter Closed Date Diagnosis/Indication Diagnosis SNOMED-CT Code Diagnosis ICD10 Code Diagnosis IMO Codes Diagnosis Note [id number] JOSE COOK [facility] ([facility]) [address] [place] [phone] 04/27/2023 09:46:11 04/27/2023 11:54:20 Cough 48023106 R05.9 Negative COVID test today. Viral gastroenteritis 11 5752021 A08.4 Discussed with patient that this is [...] ID Guarantor Name 05/03/2023 1 [employer] [id number] Sophiamode Thomas [id number] DT Sophiabryanna Thomas Notes Date Note Type Note Provider Name and Address Organization Details Recorded Time 3 text/html CoughReported by PatientHPIFor severity, patient reportsworseningbut reportsmoderate. For associated symptoms, patient reportsnasal discharge,muscle pain, andtirednessbut reportsno feverandno chills(headache, vomiting, nausea,). For quality, patient reportsdry. For duration, patient reportsconstantandacute (<3 weeks). For onset/timing, patient reportssudden.ROS as noted in the HPI Patient is a 37 year old female who presents to the walk in clinic today for sinus pressure, abdominal pain, nausea and vomiting. Patient reports symptoms started this morning. Denies fever. Not tolerating any foods or liquids. CARLEE BEY, MARCELLA-Veronika [address] [place], [address], [facility], [place] 04/27/2023 11:01:00 OBGyn Episode No OBEpisode recorded.
[2025-04-11] MEDS: tetanus-dipt-pertussis 0.5 mL SDV IM (20:36)
[2025-04-11 20:40] VITALS: BP 149/88; PULSE 74; O2SAT 99
[2025-04-11] MEDS: mupirocin oint 22 gm 1 APPLIC TOPICAL (21:09)
[2025-04-11 21:26] VITALS: BP 143/106; PULSE 75; O2SAT 98
--- NOTE | 2025-04-12 01:00 | W.ED.BURNSMK ---
HPI - Burn/Smoke Inhalation General: Chief complaint: Burn/Smoke Inhalation Stated complaint: Burned LT hand Time Seen by Provider: 04/11/25 20:25 History of Present Illness: 39-year-old female who presents emergency room she had grabbed at a hot zaragoza while she was working and sustained singh on the 2nd and 3rd and 4th fingers of the left hand. No other injury. She is awake and alert. She does have some rings on each of the fingers. Related Data Home Medications ?Medication ?Instructions ?Recorded ?Confirmed ibuprofen 200 mg tablet 800 mg PO Q6H PRN Pain 06/04/24 11/23/24 progesterone micronized 200 mg 200 mg PO BEDTIME 06/04/24 11/23/24 capsule Previous Rx's ?Medication ?Instructions ?Recorded epinephrine 0.3 mg/0.3 mL 0.3 mg (0.3 mL) IM Q20M PRN 03/17/22 injection, auto-injector anaphylaxis #2 ea estradiol 0.01% (0.1 mg/gram) 1 g vaginal .COMPLEX #42.5 grams 04/18/24 vaginal cream (Estrace) estradiol 1 mg tablet 1 mg PO DAILY #90 tabs 04/18/24 naproxen 500 mg tablet (Naprosyn) 500 mg PO BID PRN pain #20 tabs 11/07/24 left knee economy brace #1 ea 11/23/24 mupirocin 2 % topical ointment 1 applic topical BID #22 grams 04/11/25 (Centany) Allergies Allergy/AdvReac Type Severity Reaction Status Date / Time Sulfa (Sulfonamide Allergy difficulty Verified 01/21/25 10:58 Antibiotics) breathing [facility] ED PFSH: Medical History Surgical menopause, symptomatic 03/13/2019: Laparoscopic BSO due to endometriomas Ovarian endometriosis 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 Found to have bilateral endometriomas at time of laparoscopy on 03/13/2019 resulting in BSO being performed. Surgical History S/P bilateral salpingo-oophorectomy (03/13/19) Laparoscopic BSO with lysis of omental and ovarian adhesions. Diagnosis: Bilateral endometriomas. Performed by Dr. Steve Davis at [facility] in [place], [place]. History of cholecystectomy (09/13/09) Laparoscopic. Performed by Dr. Briones at [facility] in [place], [place]. Hx of section (07/24/08) Bleeding placenta previa. J incision of the uterus. Performed by Dr. Steve Davis at [facility] in [place], [place] History of tubal ligation (05/13/10) Performed at time of section. Performed by Dr. Perez at performed at [facility] in [place], [place]. Previous section (05/13/10) Repeat section with BTL. Performed by Dr. Perez at [facility] in [place], [place]. Status post surgery (01/29/14) Excision of incisional endometriosis--She had an approximately 4 cm mass involving the skin, subcutaneous tissue and a small area of the fascia at the right corner of her Pfannenstiel incision.? Performed by Dr. Steve Davis at [facility] in [place], [place]. Family History Mother Hypertension Hyperlipidemia Grandmother Hypertension Maternal Breast cancer Maternal Mother Heart disease Denies family history of Diabetes CAD (coronary artery disease) Clotting disorder Chronic kidney disease (CKD) Bleeding disorder Thyroid disease Stroke Social History Smoking and tobacco/nicotine status: current every day tobacco/nicotine user Physical Exam Extremity: OTHER: Examination of the left hand early signs of blistering on the pads of the 2nd, 3rd and 4th fingers of the left hand full range of motion in the hand. Moderately painful Course Vital Signs: Vital signs: Vital Signs Temperature 97.5 F L 04/11/25 20:21 Pulse Rate 75 04/11/25 21:26 Respiratory Rate 16 04/11/25 20:21 Blood Pressure 143/106 04/11/25 21:26 Pulse Oximetry 98 04/11/25 21:26 Oxygen Delivery Me thod Room Air 04/11/25 20:21 MDM - Burn/Smoke Inhalation Medical Decision Making Medical decision making Social determinants: Good social support I reviewed the patient's medical record. I reviewed the patient's current home meds Alternate historians: at the bedside Differential diagnosis second-degree singh left hand, fracture Lab Review: None Imaging: None Assessment of risk: Level of risk: Minimal Hospitalization considerations: No emergent condition requiring hospitalization Reexamination: Wounds dressed with topical antibiotic ointment and gauze Assessment and plan: Patient presents with singh in the tips of the fingers. We had to remove her rings in case she develops any swelling these are all second-degree singh limited to points of contact on the pads of the fingers. Will do a discharge home wound care instructions given tetanus was updated will refer to the wound clinic. No radiology studies performed this visit Discharge Plan Discharge Patient Disposition: Home Clinical Impression: Second degree burn of fingers Condition: Stable Prescriptions: New mupirocin [Centany] 2 % ointment 1 applic topical BID Qty: 22 0RF No Action (DME) left knee economy brace See Rx Instructions .Route .MEDSUPPLY Qty: 1 0RF Rx Instructions: As directed estradiol 1 mg tablet 1 mg PO DAILY Qty: 90 3RF Rx Instructions: take in conjunction with prometrium estradiol [Estrace] 0.01 % (0.1 mg/gram) cream 1 g vaginal .COMPLEX Qty: 42.5 3RF Rx Instructions: insert 1 gram at hs for 14 nights then 2-3 times weekly-- space out doses epinephrine 0.3 mg/0.3 mL auto-injector 0.3 mg IM Q20M PRN (Reason: anaphylaxis) Qty: 2 0RF Rx Instructions: do not exceed 3 doses per episode progesterone micronized 200 mg capsule 200 mg PO BEDTIME Rx Instructions: take in conjunction with estrogen ibuprofen 200 mg Tablet 800 mg PO Q6H PRN (Reason: Pain) naproxen [Naprosyn] 500 mg tablet 500 mg PO BID PRN (Reason: pain) Qty: 20 0RF Discharge Orders: Discharge ED (Routine); Ordered 04/11/25 Ordered By: Jose Jacobson Discharge Diet: Usual diet Discharge Activity: Increase activity as tolerated Patient Instructions: Opioid Safety, Pain Management, Patient Portal & Bruce Instructions Activity Restrictions/Additional Instructions: Thank you for choosing [facility] for your healthcare needs today. It is very important that you follow up as instructed or that you return to the Emergency Department should you have concerns or if your condition changes or worsens in any way. Emergency department visits are focused on emergent conditions, in some cases you may require further evaluation on an outpatient basis. You were seen in the emergency room with singh to your fingers of your left hand. Your tetanus was updated in the emergency room. Wounds were dressed. You are given a prescription for mupirocin apply topical antibiotic ointment and dressed each finger individually. You will develop some blistering. Will have you follow-up with the wound care clinic to manage the singh as they heal. You can use [id number] Tylenol or ibuprofen for pain. (Please note that included in your discharge packet is information concerning opioid safety and pain management. This information is given to all patients were discharged from the ER regardless of their discharge diagnosis or the medicines they usually take or are prescribed.) Print Language: Czech Coding Level of Care Code ED Senior Electrical Project Manager for Ramirez Huizar
--- NOTE | 2025-04-15 07:22 | DCPLANNER ---
messaged wound care for er f/u
== END 2025-04-11 21:30 | disposition home or self-care (01) ==
PROVIDERS: Emergency Provider Family Medicine
DX: T23.232A Burn of second degree of multiple left fingers (nail), not including thumb, initial encounter (principal); Z72.0 Tobacco use; X15.3XXA Contact with hot saucepan or skillet, initial encounter
CPT/HCPCS: 90471; 90715; 96372; 99284; J1885; J9999